=== PATIENT | male | born 1980 | race Caucasian/White ===

== ENCOUNTER 2018-11-03 13:21 | Emergency (ER) | payer OTHER, MEDICAID, SELFPAY ==
[2018-11-03 13:36] VITALS: BP 163/94; PULSE 77; RESP 20; TEMP 36.4; O2SAT 100; BMI 42.3
--- NOTE | 2018-11-03 13:42 | ED.NAVMDI ---
HPI - Nausea/Vomiting/Diarrhea <JULIENNE Alfredo - Last Filed: 11/03/18 15:52> General Chief complaint: Abdominal Pain Stated complaint: Vomiting since last night every hr Time Seen by Provider: 11/03/18 13:37 Source: patient Mode of arrival: ambulatory Limitations: no limitations History of Present Illness HPI Narrative: says it came on suddenly with vomiting and diarrhea, last night, can't keep anything down and it is coming from both ends MD complaint: nausea, vomiting and diarrhea Onset (ago): day(s) (last night) Description of Vomiting: continuous Description of Diarrhea: watery Associated Abdominal Pain: Yes Location of pain: diffuse Radiation: does not radiate Severity: severe Quality: cramping and other (burning) Pain Consistency: constant Exacerbating factors: none Context: other (no travel, no exposure to bad food or sick people) Associated symptoms: denies other symptoms Related Data Home Medications Medication Instructions Recorded Confirmed amitriptyline 150 mg PO BEDTIME 11/03/18 11/03/18 brexpiprazole [Rexulti] 4 mg PO DAILY 11/03/18 11/03/18 gabapentin 800 mg PO BID 11/03/18 11/03/18 pantoprazole 40 mg PO BID 11/03/18 11/03/18 prazosin 5 mg PO BEDTIME 11/03/18 11/03/18 sucralfate [Carafate] 1 g PO QID 11/03/18 11/03/18 venlafaxine 150 mg PO DAILY 11/03/18 11/03/18 Previous Rx's Medication Instructions Recorded ondansetron 4 mg PO Q8-12H PRN #14 tab 11/03/18 promethazine [Phenergan] 25 mg MT Q6H PRN #12 each 11/03/18 Allergies Allergy/AdvReac Type Severity Reaction Status Date / Time Iodinated Contrast- Oral and Allergy Verified 11/03/18 13:40 IV Dye Penicillins Allergy Verified 11/03/18 13:40 shellfish derived Allergy Verified 11/03/18 13:40 Sulfa (Sulfonamide Allergy Verified 11/03/18 13:40 Antibiotics) Review of Systems <JULIENNE Alfredo - Last Filed: 11/03/18 15:52> Review of Systems ROS Unobtainable: All systems reviewed & are unremarkable except as noted in HPI and below Constitutional Reports as per HPI, Reports system reviewed and no additional complaints, except as docu and Denies weakness ENT Ears, Nose, Mouth, and Throat: Denies vertigo and Denies dizziness Cardiovascular Denies chest pain and Denies dyspnea Respiratory Denies dyspnea Gastrointestinal Gastrointestinal: Reports as per HPI, Reports abdominal pain, Denies melena, Denies hematochezia, Denies coffee ground emesis, Denies constipation, Reports cramping, Reports diarrhea, Reports nausea and Reports vomiting (tntc) Comments: several watery dark stools Genitourinary Denies oliguria, Denies dysuria and Denies flank pain Musculoskeletal Denies back pain Neurologic Denies vertigo, Denies dizziness, Denies focal weakness and Denies weakness PFSH <JULIENNE Alfredo - Last Filed: 11/03/18 15:52> Social History Smoking Status: Former smoker Social History Smoking Status: Former smoker Exam <JULIENNE Alfredo - Last Filed: 11/03/18 15:52> Initial Vital Signs Initial Vital Signs: Vital Signs Temperature 97.6 F 11/03/18 13:36 Pulse Rate 77 11/03/18 13:36 Respiratory Rate 20 11/03/18 13:36 Blood Pressure 163/94 H 11/03/18 13:36 Pulse Oximetry 100 11/03/18 13:36 Const General: cooperative, healthy appearing, comfortable and well developed Nutritional Appearance: obese Orientation: alert, awake and oriented x3 Other: pt was vomiting when I entered the room Resp Effort & Inspection: normal respiratory effort and able to speak in complete sentences Auscultation: clear to auscultation bilaterally Cardio Rate: regular rate Rhythm: regular rhythm Heart Sounds: S1 normal and S2 normal GI Inspection: normal to inspection and obesity Palpation: soft Auscultation: normal bowel sounds Back/Spine/Pelvis Cervical Spine: cervical ROM normal Thoracic/Lumbar Spine: thoraco-lumbar ROM limited Skin General: no rashes or lesions noted, elasticity normal, turgor normal and warm Neuro General: alert, awake and oriented x3 Cranial Nerves: CN's II-XI intact bilaterally Cognition: normal cognition Speech: speech normal Motor: muscle tone normal throughout Sensory Exam: no sensory deficits noted Psych Appearance: grossly normal and well kempt Mental Status: mental status grossly normal Speech and Movement: speech and movement normal Mood: congruent mood Affect: normal affect Attitude: cooperative Thought Process: normal Thought Content: normal Judgment: judgment good <Lalita Meeks DO - Last Filed: 11/03/18 19:21> Initial Vital Signs Initial Vital Signs: Vital Signs Temperature 97.6 F 11/03/18 13:36 Pulse Rate 77 11/03/18 13:36 Respiratory Rate 20 11/03/18 13:36 Blood Pressure 163/94 H 11/03/18 13:36 Pulse Oximetry 100 11/03/18 13:36 Course <JULIENNE Alfredo - Last Filed: 11/03/18 15:52> Course Narrative: pt still vomiting, another order given for 2nd dose of zofran pt no longer vomiting but nausea, so gi cocktain given pt given dose of reglan, no vomiting 1540 back at bedside, approx 800ml of the fluid bolus in, no more vomiting and pt stated he felt better Orders Ordered: ED Orders 11/03/18 13:40 Amylase Stat Comprehensive Metabolic Panel Stat Lipase Stat 11/03/18 14:35 Complete Blood Count AUTO DIFF Stat 11/03/18 15:35 Urinalysis Sreen (Dip Only) Stat Discontinued Medications Al Hydrox/Mg Hydrox/Simethicone 20 ml/ Lidocaine HCl 15 ml 0 ml PO NOW ONE Stop: 11/03/18 14:48 Last Admin: 11/03/18 14:51 Dose: 35 ml Sodium Chloride (Normal Saline 0.9%) 1,000 mls @ 1,000 mls/hr IV BOLUS ONE Stop: 11/03/18 14:39 Last Infusion: 11/03/18 15:54 Dose: 0 mls/hr Admin: 11/03/18 14:27 Dose: 1,000 mls/hr Ketorolac Tromethamine (Toradol) 30 mg IV NOW ONE Stop: 11/03/18 13:41 Last Admin: 11/03/18 14:27 Dose: 30 mg Metoclopramide HCl (Reglan) 10 mg IV NOW ONE Stop: 11/03/18 15:15 Last Admin: 11/03/18 15:18 Dose: 10 mg Ondansetron HCl (Zofran) 4 mg IV NOW ONE Stop: 11/03/18 13:41 Last Admin: 11/03/18 14:27 Dose: 4 mg Ondansetron HCl (Zofran) 4 mg IV NOW ONE Stop: 11/03/18 14:53 Last Admin: 11/03/18 14:53 Dose: 4 mg Vital Signs - 8 hr 11/03/18 13:36 11/03/18 16:02 Temperature 97.6 F Pulse Rate 77 82 Respiratory Rate 20 18 Blood Pressure 163/94 H 149/90 H Pulse Oximetry 100 100 <Lalita Meeks DO - Last Filed: 11/03/18 19:21> Orders Ordered: ED Orders 11/03/18 13:40 Amylase Stat Comprehensive Metabolic Panel Stat Lipase Stat 11/03/18 14:35 Complete Blood Count AUTO DIFF Stat 11/03/18 15:35 Urinalysis Sreen (Dip Only) Stat Discontinued Medications Al Hydrox/Mg Hydrox/Simethicone 20 ml/ Lidocaine HCl 15 ml 0 ml PO NOW ONE Stop: 11/03/18 14:48 Last Admin: 11/03/18 14:51 Dose: 35 ml Sodium Chloride (Normal Saline 0.9%) 1,000 mls @ 1,000 mls/hr IV BOLUS ONE Stop: 11/03/18 14:39 Last Infusion: 11/03/18 15:54 Dose: 0 mls/hr Admin: 11/03/18 14:27 Dose: 1,000 mls/hr Ketorolac Tromethamine (Toradol) 30 mg IV NOW ONE Stop: 11/03/18 13:41 Last Admin: 11/03/18 14:27 Dose: 30 mg Metoclopramide HCl (Reglan) 10 mg IV NOW ONE Stop: 11/03/18 15:15 Last Admin: 11/03/18 15:18 Dose: 10 mg Ondansetron HCl (Zofran) 4 mg IV NOW ONE Stop: 11/03/18 13:41 Last Admin: 11/03/18 14:27 Dose: 4 mg Ondansetron HCl (Zofran) 4 mg IV NOW ONE Stop: 11/03/18 14:53 Last Admin: 11/03/18 14:53 Dose: 4 mg Vital Signs - 8 hr 11/03/18 13:36 11/03/18 16:02 Temperature 97.6 F Pulse Rate 77 82 Respiratory Rate 20 18 Blood Pressure 163/94 H 149/90 H Pulse Oximetry 100 100 MDM - Nausea/Vomiting/Diarrhea <JULIENNE lAfredo - Last Filed: 11/03/18 15:52> Differential Diagnosis Likely traveler's diarrhea, food poisoning, gastroenteritis, clostridium difficile infection, drug-induced nausea and vomiting, dehydration and other (electrolyte imbalance, diverticulitis, viral illness) Lab Data Result diagrams: 11/03/18 14:35 11/03/18 13:40 Lab Results 11/03/18 11/03/18 11/03/18 Range/Units 13:40 14:35 15:35 WBC 15.5 H (4.5-11.0) X10^3/uL RBC 5.26 (4.5-5.9) X10^6/uL Hgb 14.5 (13.5-17.5) g/dL Hct 43.5 (41-53) % MCV 82.7 (80-100) fL MCH 27.6 (26-34) PG MCHC 33.4 (30-36) % RDW 14.5 (11.6-14.8) % Plt Count 360 (150-400) X10^3/uL Neut % (Auto) 82.9 H (50-75) % Lymph % (Auto) 11.9 L (25-40) % [place] % (Auto) 4.4 (3-14) % Eos % (Auto) 0.4 L (2-4) % Baso % (Auto) 0.4 (0-2) % Neut # (Auto) 58314 H (8237-6733) /uL Lymph # (Auto) 1800 (6508-1102) /uL [place] # (Auto) 700 (0-900) /uL Eos # (Auto) 100 (0-450) /uL Baso # (Auto) 100 (0-100) /uL Sodium 140 (137-145) mmol/L Potassium 4.2 (3.4-5.1) mmol/L Chloride 103 (98-107) mmol/L Carbon Dioxide 25 (22-32) mmol/L BUN 21 H (9-20) mg/dL Creatinine 1.10 (0.66-1.25) mg/dL Estimated GFR > 60.0 (>60) mL/min BUN/Creatinine Ratio 19.1 (6-22) Glucose 120 H (70-100) mg/dL Calcium 9.7 (8.4-10.2) mg/dL Total Bilirubin 0.7 (0.2-1.3) mg/dL AST 29 (17-59) IU/L ALT 26 (21-72) IU/L Alkaline Phosphatase 68 (38-126) U/L Total Protein 8.5 H (6.3-8.2) g/dL Albumin 4.8 (3.5-5.0) g/dL Globulin 3.7 (1.7-4.1) g/dL Albumin/Globulin Ratio 1.3 (1.0-2.8) Amylase 44 (30-110) U/L Lipase 56 (23-300) U/L Urine Color Yellow Urine Appearance Clear Urine pH 8.5 H (4.5-8.0) Ur Specific [place] 1.010 (1.000-1.035) Urine Protein 2+ H (Negative) Urine Glucose (UA) Negative (Negative) g/dL Urine Ketones 1+ H (NEGATIVE) Urine Occult Blood Negative (Negative) Urine Nitrate Negative (Negative) Urine Bilirubin Negative (NEGATIVE) Urine Urobilinogen 0.2 (0.2) E.U./dL Ur Leukocyte Esterase Negative (NEGATIVE) <Lalita Meeks, DO - Last Filed: 11/03/18 19:21> Lab Data Lab Results 11/03/18 11/03/18 11/03/18 Range/Units 13:40 14:35 15:35 WBC 15.5 H (4.5-11.0) X10^3/uL RBC 5.26 (4.5-5.9) X10^6/uL Hgb 14.5 (13.5-17.5) g/dL Hct 43.5 (41-53) % MCV 82.7 (80-100) fL MCH 27.6 (26-34) PG MCHC 33.4 (30-36) % RDW 14.5 (11.6-14.8) % Plt Count 360 (150-400) X10^3/uL Neut % (Auto) 82.9 H (50-75) % Lymph % (Auto) 11.9 L (25-40) % [place] % (Auto) 4.4 (3-14) % Eos % (Auto) 0.4 L (2-4) % Baso % (Auto) 0.4 (0-2) % Neut # (Auto) 40676 H (4194-2662) /uL Lymph # (Auto) 1800 (2162-9840) /uL [place] # (Auto) 700 (0-900) /uL Eos # (Auto) 100 (0-450) /uL Baso # (Auto) 100 (0-100) /uL Sodium 140 (137-145) mmol/L Potassium 4.2 (3.4-5.1) mmol/L Chloride 103 (98-107) mmol/L Carbon Dioxide 25 (22-32) mmol/L BUN 21 H (9-20) mg/dL Creatinine 1.10 (0.66-1.25) mg/dL Estimated GFR > 60.0 (>60) mL/min BUN/Creatinine Ratio 19.1 (6-22) Glucose 120 H (70-100) mg/dL Calcium 9.7 (8.4-10.2) mg/dL Total Bilirubin 0.7 (0.2-1.3) mg/dL AST 29 (17-59) IU/L ALT 26 (21-72) IU/L Alkaline Phosphatase 68 (38-126) U/L Total Protein 8.5 H (6.3-8.2) g/dL Albumin 4.8 (3.5-5.0) g/dL Globulin 3.7 (1.7-4.1) g/dL Albumin/Globulin Ratio 1.3 (1.0-2.8) Amylase 44 (30-110) U/L Lipase 56 (23-300) U/L Urine Color Yellow Urine Appearance Clear Urine pH 8.5 H (4.5-8.0) Ur Specific [place] 1.010 (1.000-1.035) Urine Protein 2+ H (Negative) Urine Glucose (UA) Negative (Negative) g/dL Urine Ketones 1+ H (NEGATIVE) Urine Occult Blood Negative (Negative) Urine Nitrate Negative (Negative) Urine Bilirubin Negative (NEGATIVE) Urine Urobilinogen 0.2 (0.2) E.U./dL Ur Leukocyte Esterase Negative (NEGATIVE) Discharge Plan Departure Patient Disposition: Home Clinical Impression: Gastroenteritis, Abdominal pain Discharge Date/Time: 11/03/18 16:03 Interventions: ED Discharge Assessment Last Done: 11/03/18 16:02 Instructions: DI for Viral Gastroenteritis -- Adult, DI for Abdominal Pain-Adult Activity Restrictions/Additional Instructions: Clear liquids next 12-24 hrs, then advance diet as tolerated from liquid to BRAT diet (bland food, bananas, rice, toast, dry cereal), then continue to advance diet Prescriptions: New ondansetron 4 mg tablet,disintegrating 4 mg PO Q8-12H PRN (Reason: nausea and vomiting) Qty: 14 RF: 0 promethazine [Phenergan] 25 mg suppository 25 mg MT Q6H PRN (Reason: nausea and vomiting) Qty: 12 RF: 0 No Action amitriptyline 50 mg Tablet 150 mg PO BEDTIME RF: 0 prazosin 5 mg Capsule 5 mg PO BEDTIME RF: 0 gabapentin 800 mg Tablet 800 mg PO BID RF: 0 venlafaxine 150 mg Tablet Extended Release 24hr 150 mg PO DAILY RF: 0 Rexulti 4 mg Tablet 4 mg PO DAILY RF: 0 sucralfate [Carafate] 1 gram Tablet 1 g PO QID RF: 0 pantoprazole 40 mg Tablet,Delayed Release (Dr/Ec) 40 mg PO BID RF: 0 Referrals: Allison Esparza PA-C [[facility]] - Shai Stallings PA-C [[facility]] - Edna Bowser ARNP [[facility]] - Paul Blunt MD [Non-Staff] - Ramesh Mercado PA-C [[facility]] - (follow up recommended in 2 days ) <Lalita Meeks DO - Last Filed: 11/03/18 19:21> [facility] I was immediately available in the department for consultation. This documentation has been reviewed and I agree with assessment and plan. Supervised by Lalita Meeks DO
--- NOTE | 2018-11-03 13:46 | ED_ITS ---
HPI - Nausea/Vomiting/Diarrhea <JULIENNE Alfredo - Last Filed: 11/03/18 15:52> General Chief complaint: Abdominal Pain Stated complaint: Vomiting since last night every hr Time Seen by Provider: 11/03/18 13:37 Source: patient Mode of arrival: ambulatory Limitations: no limitations History of Present Illness HPI Narrative: says it came on suddenly with vomiting and diarrhea, last night, can't keep anything down and it is coming from both ends MD complaint: nausea, vomiting and diarrhea Onset (ago): day(s) (last night) Description of Vomiting: continuous Description of Diarrhea: watery Associated Abdominal Pain: Yes Location of pain: diffuse Radiation: does not radiate Severity: severe Quality: cramping and other (burning) Pain Consistency: constant Exacerbating factors: none Context: other (no travel, no exposure to bad food or sick people) Associated symptoms: denies other symptoms Related Data Home Medications Medication Instructions Recorded Confirmed amitriptyline 150 mg PO BEDTIME 11/03/18 11/03/18 brexpiprazole [Rexulti] 4 mg PO DAILY 11/03/18 11/03/18 gabapentin 800 mg PO BID 11/03/18 11/03/18 pantoprazole 40 mg PO BID 11/03/18 11/03/18 prazosin 5 mg PO BEDTIME 11/03/18 11/03/18 sucralfate [Carafate] 1 g PO QID 11/03/18 11/03/18 venlafaxine 150 mg PO DAILY 11/03/18 11/03/18 Previous Rx's Medication Instructions Recorded ondansetron 4 mg PO Q8-12H PRN #14 tab 11/03/18 promethazine [Phenergan] 25 mg IL Q6H PRN #12 each 11/03/18 Allergies Allergy/AdvReac Type Severity Reaction Status Date / Time Iodinated Contrast- Oral and Allergy Verified 11/03/18 13:40 IV Dye Penicillins Allergy Verified 11/03/18 13:40 shellfish derived Allergy Verified 11/03/18 13:40 Sulfa (Sulfonamide Allergy Verified 11/03/18 13:40 Antibiotics) Review of Systems <JULIENNE Alfredo - Last Filed: 11/03/18 15:52> Review of Systems ROS Unobtainable: All systems reviewed & are unremarkable except as noted in HPI and below Constitutional Reports as per HPI, Reports system reviewed and no additional complaints, except as docu and Denies weakness ENT Ears, Nose, Mouth, and Throat: Denies vertigo and Denies dizziness Cardiovascular Denies chest pain and Denies dyspnea Respiratory Denies dyspnea Gastrointestinal Gastrointestinal: Reports as per HPI, Reports abdominal pain, Denies melena, Denies hematochezia, Denies coffee ground emesis, Denies constipation, Reports cramping, Reports diarrhea, Reports nausea and Reports vomiting (tntc) Comments: several watery dark stools Genitourinary Denies oliguria, Denies dysuria and Denies flank pain Musculoskeletal Denies back pain Neurologic Denies vertigo, Denies dizziness, Denies focal weakness and Denies weakness PFSH <JULIENNE Alfredo - Last Filed: 11/03/18 15:52> Social History Smoking Status: Former smoker Social History Smoking Status: Former smoker Exam <JULIENNE Alfredo - Last Filed: 11/03/18 15:52> Initial Vital Signs Initial Vital Signs: Vital Signs Temperature 97.6 F 11/03/18 13:36 Pulse Rate 77 11/03/18 13:36 Respiratory Rate 20 11/03/18 13:36 Blood Pressure 163/94 H 11/03/18 13:36 Pulse Oximetry 100 11/03/18 13:36 Const General: cooperative, healthy appearing, comfortable and well developed Nutritional Appearance: obese Orientation: alert, awake and oriented x3 Other: pt was vomiting when I entered the room Resp Effort & Inspection: normal respiratory effort and able to speak in complete sentences Auscultation: clear to auscultation bilaterally Cardio Rate: regular rate Rhythm: regular rhythm Heart Sounds: S1 normal and S2 normal GI Inspection: normal to inspection and obesity Palpation: soft Auscultation: normal bowel sounds Back/Spine/Pelvis Cervical Spine: cervical ROM normal Thoracic/Lumbar Spine: thoraco-lumbar ROM limited Skin General: no rashes or lesions noted, elasticity normal, turgor normal and warm Neuro General: alert, awake and oriented x3 Cranial Nerves: CN's II-XI intact bilaterally Cognition: normal cognition Speech: speech normal Motor: muscle tone normal throughout Sensory Exam: no sensory deficits noted Psych Appearance: grossly normal and well kempt Mental Status: mental status grossly normal Speech and Movement: speech and movement normal Mood: congruent mood Affect: normal affect Attitude: cooperative Thought Process: normal Thought Content: normal Judgment: judgment good <Lalita Meeks DO - Last Filed: 11/03/18 19:21> Initial Vital Signs Initial Vital Signs: Vital Signs Temperature 97.6 F 11/03/18 13:36 Pulse Rate 77 11/03/18 13:36 Respiratory Rate 20 11/03/18 13:36 Blood Pressure 163/94 H 11/03/18 13:36 Pulse Oximetry 100 11/03/18 13:36 Course <JULIENNE Alfredo - Last Filed: 11/03/18 15:52> Course Narrative: pt still vomiting, another order given for 2nd dose of zofran pt no longer vomiting but nausea, so gi cocktain given pt given dose of reglan, no vomiting 1540 back at bedside, approx 800ml of the fluid bolus in, no more vomiting and p t stated he felt better Orders Ordered: ED Orders 11/03/18 13:40 Amylase Stat Comprehensive Metabolic Panel Stat Lipase Stat 11/03/18 14:35 Complete Blood Count AUTO DIFF Stat 11/03/18 15:35 Urinalysis Sreen (Dip Only) Stat Discontinued Medications Al Hydrox/Mg Hydrox/Simethicone 20 ml/ Lidocaine HCl 15 ml 0 ml PO NOW ONE Stop: 11/03/18 14:48 Last Admin: 11/03/18 14:51 Dose: 35 ml Sodium Chloride (Normal Saline 0.9%) 1,000 mls @ 1,000 mls/hr IV BOLUS ONE Stop: 11/03/18 14:39 Last Infusion: 11/03/18 15:54 Dose: 0 mls/hr Admin: 11/03/18 14:27 Dose: 1,000 mls/hr Ketorolac Tromethamine (Toradol) 30 mg IV NOW ONE Stop: 11/03/18 13:41 Last Admin: 11/03/18 14:27 Dose: 30 mg Metoclopramide HCl (Reglan) 10 mg IV NOW ONE Stop: 11/03/18 15:15 Last Admin: 11/03/18 15:18 Dose: 10 mg Ondansetron HCl (Zofran) 4 mg IV NOW ONE Stop: 11/03/18 13:41 Last Admin: 11/03/18 14:27 Dose: 4 mg Ondansetron HCl (Zofran) 4 mg IV NOW ONE Stop: 11/03/18 14:53 Last Admin: 11/03/18 14:53 Dose: 4 mg Vital Signs - 8 hr 11/03/18 13:36 11/03/18 16:02 Temperature 97.6 F Pulse Rate 77 82 Respiratory Rate 20 18 Blood Pressure 163/94 H 149/90 H Pulse Oximetry 100 100 <Lalita Meeks DO - Last Filed: 11/03/18 19:21> Orders Ordered: ED Orders 11/03/18 13:40 Amylase Stat Comprehensive Metabolic Panel Stat Lipase Stat 11/03/18 14:35 Complete Blood Count AUTO DIFF Stat 11/03/18 15:35 Urinalysis Sreen (Dip Only) Stat Discontinued Medications Al Hydrox/Mg Hydrox/Simethicone 20 ml/ Lidocaine HCl 15 ml 0 ml PO NOW ONE Stop: 11/03/18 14:48 Last Admin: 11/03/18 14:51 Dose: 35 ml Sodium Chloride (Normal Saline 0.9%) 1,000 mls @ 1,000 mls/hr IV BOLUS ONE Stop: 11/03/18 14:39 Last Infusion: 11/03/18 15:54 Dose: 0 mls/hr Admin: 11/03/18 14:27 Dose: 1,000 mls/hr Ketorolac Tromethamine (Toradol) 30 mg IV NOW ONE Stop: 11/03/18 13:41 Last Admin: 11/03/18 14:27 Dose: 30 mg Metoclopramide HCl (Reglan) 10 mg IV NOW ONE Stop: 11/03/18 15:15 Last Admin: 11/03/18 15:18 Dose: 10 mg Ondansetron HCl (Zofran) 4 mg IV NOW ONE Stop: 11/03/18 13:41 Last Admin: 11/03/18 14:27 Dose: 4 mg Ondansetron HCl (Zofran) 4 mg IV NOW ONE Stop: 11/03/18 14:53 Last Admin: 11/03/18 14:53 Dose: 4 mg Vital Signs - 8 hr 11/03/18 13:36 11/03/18 16:02 Temperature 97.6 F Pulse Rate 77 82 Respiratory Rate 20 18 Blood Pressure 163/94 H 149/90 H Pulse Oximetry 100 100 MDM - Nausea/Vomiting/Diarrhea <JULIENNE Alfredo - Last Filed: 11/03/18 15:52> Differential Diagnosis Likely traveler's diarrhea, food poisoning, gastroenteritis, clostridium difficile infection, drug-induced nausea and vomiting, dehydration and other (electrolyte imbalance, diverticulitis, viral illness) Lab Data Result diagrams: 11/03/18 14:35 11/03/18 13:40 Lab Results 11/03/18 11/03/18 11/03/18 Range/Units 13:40 14:35 15:35 WBC 15.5 H (4.5-11.0) X10^3/uL RBC 5.26 (4.5-5.9) X10^6/uL Hgb 14.5 (13.5-17.5) g/dL Hct 43.5 (41-53) % MCV 82.7 (80-100) fL MCH 27.6 (26-34) PG MCHC 33.4 (30-36) % RDW 14.5 (11.6-14.8) % Plt Count 360 (150-400) X10^3/uL Neut % (Auto) 82.9 H (50-75) % Lymph % (Auto) 11.9 L (25-40) % [place] % (Auto) 4.4 (3-14) % Eos % (Auto) 0.4 L (2-4) % Baso % (Auto) 0.4 (0-2) % Neut # (Auto) 78403 H (4364-3274) /uL Lymph # (Auto) 1800 (0046-2198) /uL [place] # (Auto) 700 (0-900) /uL Eos # (Auto) 100 (0-450) /uL Baso # (Auto) 100 (0-100) /uL Sodium 140 (137-145) mmol/L Potassium 4.2 (3.4-5.1) mmol/L Chloride 103 (98-107) mmol/L Carbon Dioxide 25 (22-32) mmol/L BUN 21 H (9-20) mg/dL Creatinine 1.10 (0.66-1.25) mg/dL Estimated GFR > 60.0 (>60) mL/min BUN/Creatinine Ratio 19.1 (6-22) Glucose 120 H (70-100) mg/dL Calcium 9.7 (8.4-10.2) mg/dL Total Bilirubin 0.7 (0.2-1.3) mg/dL AST 29 (17-59) IU/L ALT 26 (21-72) IU/L Alkaline Phosphatase 68 (38-126) U/L Total Protein 8.5 H (6.3-8.2) g/dL Albumin 4.8 (3.5-5.0) g/dL Globulin 3.7 (1.7-4.1) g/dL Albumin/Globulin Ratio 1.3 (1.0-2.8) Amylase 44 (30-110) U/L Lipase 56 (23-300) U/L Urine Color Yellow Urine Appearance Clear Urine pH 8.5 H (4.5-8.0) Ur Specific [place] 1.010 (1.000-1.035) Urine Protein 2+ H (Negative) Urine Glucose (UA) Negative (Negative) g/dL Urine Ketones 1+ H (NEGATIVE) Urine Occult Blood Negative (Negative) Urine Nitrate Negative (Negative) Urine Bilirubin Negative (NEGATIVE) Urine Urobilinogen 0.2 (0.2) E.U./dL Ur Leukocyte Esterase Negative (NEGATIVE) <Lalita Meeks, DO - Last Filed: 11/03/18 19:21> Lab Data Lab Results 11/03/18 11/03/18 11/03/18 Range/Units 13:40 14:35 15:35 WBC 15.5 H (4.5-11.0) X10^3/uL RBC 5.26 (4.5-5.9) X10^6/uL Hgb 14.5 (13.5-17.5) g/dL Hct 43.5 (41-53) % MCV 82.7 (80-100) fL MCH 27.6 (26-34) PG MCHC 33.4 (30-36) % RDW 14.5 (11.6-14.8) % Plt Count 360 (150-400) X10^3/uL Neut % (Auto) 82.9 H (50-75) % Lymph % (Auto) 11.9 L (25-40) % [place] % (Auto) 4.4 (3-14) % Eos % (Auto) 0.4 L (2-4) % Baso % (Auto) 0.4 (0-2) % Neut # (Auto) 80049 H (1685-8221) /uL Lymph # (Auto) 1800 (1371-0163) /uL [place] # (Auto) 700 (0-900) /uL Eos # (Auto) 100 (0-450) /uL Baso # (Auto) 100 (0-100) /uL Sodium 140 (137-145) mmol/L Potassium 4.2 (3.4-5.1) mmol/L Chloride 103 (98-107) mmol/L Carbon Dioxide 25 (22-32) mmol/L BUN 21 H (9-20) mg/dL Creatinine 1.10 (0.66-1.25) mg/dL Estimated GFR > 60.0 (>60) mL/min BUN/Creatinine Ratio 19.1 (6-22) Glucose 120 H (70-100) mg/dL Calcium 9.7 (8.4-10.2) mg/dL Total Bilirubin 0.7 (0.2-1.3) mg/dL AST 29 (17-59) IU/L ALT 26 (21-72) IU/L Alkaline Phosphatase 68 (38-126) U/L Total Protein 8.5 H (6.3-8.2) g/dL Albumin 4.8 (3.5-5.0) g/dL Globulin 3.7 (1.7-4.1) g/dL Albumin/Globulin Ratio 1.3 (1.0-2.8) Amylase 44 (30-110) U/L Lipase 56 (23-300) U/L Urine Color Yellow Urine Appearance Clear Urine pH 8.5 H (4.5-8.0) Ur Specific [place] 1.010 (1.000-1.035) Urine Protein 2+ H (Negative) Urine Glucose (UA) Negative (Negative) g/dL Urine Ketones 1+ H (NEGATIVE) Urine Occult Blood Negative (Negative) Urine Nitrate Negative (Negative) Urine Bilirubin Negative (NEGATIVE) Urine Urobilinogen 0.2 (0.2) E.U./dL Ur Leukocyte Esterase Negative (NEGATIVE) Discharge Plan Departure Patient Disposition: Home Clinical Impression: Gastroenteritis, Abdominal pain Discharge Date/Time: 11/03/18 16:03 Interventions: ED Discharge Assessment Last Done: 11/03/18 16:02 Instructions: DI for Viral Gastroenteritis -- Adult, DI for Abdominal Pain- Adult Activity Restrictions/Additional Instructions: Clear liquids next 12-24 hrs, then advance diet as tolerated from liquid to BRAT diet (bland food, bananas, rice, toast, dry cereal), then continue to advance diet Prescriptions: New ondansetron 4 mg tablet,disintegrating 4 mg PO Q8-12H PRN (Reason: nausea and vomiting) Qty: 14 RF: 0 promethazine [Phenergan] 25 mg suppository 25 mg IL Q6H PRN (Reason: nausea and vomiting) Qty: 12 RF: 0 No Action amitriptyline 50 mg Tablet 150 mg PO BEDTIME RF: 0 prazosin 5 mg Capsule 5 mg PO BEDTIME RF: 0 gabapentin 800 mg Tablet 800 mg PO BID RF: 0 venlafaxine 150 mg Tablet Extended Release 24hr 150 mg PO DAILY RF: 0 Rexulti 4 mg Tablet 4 mg PO DAILY RF: 0 sucralfate [Carafate] 1 gram Tablet 1 g PO QID RF: 0 pantoprazole 40 mg Tablet,Delayed Release (Dr/Ec) 40 mg PO BID RF: 0 Referrals: Allison Esparza PA-C [[facility]] - Shai Stallings PA-C [[facility]] - Edna Bowser ARNP [[facility]] - Paul Blunt MD [Non-Staff] - Ramesh Mercado PA-C [[facility]] - (follow up recommended in 2 days ) <Lalita Meeks DO - Last Filed: 11/03/18 19:21> Cosign ED Attending Cosmarthaature Attestation: I was immediately available in the department for consultation. This documentation has been reviewed and I agree with assessment and plan. Supervised by Lalita Meeks DO
[2018-11-03] MEDS: ONDANSETRON 4 MG/2 ML INJ IV ×2 (14:27→14:53)
[2018-11-03] MEDS: SODIUM CHLORIDE 0.9% 1,000 ML 1000 ML IV (14:27)
[2018-11-03] MEDS: KETOROLAC 60 MG/2 ML VIAL 30 MG IV (14:27)
[2018-11-03 14:40] LABS: Add Manual Diff / Slide Review NO; Basophils Absolute Auto 100 /uL (0-100); Basophils Percent Auto 0.4 % (0-2); Eosinophils Absolute Auto 100 /uL (0-450); Eosinophils Percent Auto 0.4 % (2-4); Hematocrit 43.5 % (41-53); Hemoglobin 14.5 g/dL (13.5-17.5); Lymphocytes Absolute Auto 1800 /uL (1100-4500); Lymphocytes Percent Auto 11.9 % (25-40); Mean Corpuscular HGB Conc 33.4 % (30-36); Mean Corpuscular Hemoglobin 27.6 PG (26-34); Mean Corpuscular Volume 82.7 fL (80-100); Monocytes Absolute Auto 700 /uL (0-900); Monocytes Percent Auto 4.4 % (3-14); Neutrophils Absolute Auto 12800 /uL (1500-7000); Neutrophils Percent Auto 82.9 % (50-75); Platelet Count 360 X10^3/uL (150-400); Red Blood Cell Count 5.26 X10^6/uL (4.5-5.9); Red Cell Distribution Width 14.5 % (11.6-14.8); White Blood Cell Count 15.5 X10^3/uL (4.5-11.0)
[2018-11-03 14:43] LABS: Alanine Aminotransferase 26 IU/L (21-72); Albumin 4.8 g/dL (3.5-5.0); Albumin Globulin Ratio 1.3 (1.0-2.8); Alkaline Phosphatase 68 U/L (38-126); Amylase 44 U/L (30-110); Aspartate Aminotransferase 29 IU/L (17-59); BUN Creatinine Ratio 19.1 (6-22); Bilirubin Total 0.7 mg/dL (0.2-1.3); Blood Urea Nitrogen 21 mg/dL (9-20); Calcium 9.7 mg/dL (8.4-10.2); Carbon Dioxide 25 mmol/L (22-32); Chloride 103 mmol/L (98-107); Estimated Glomerular Filt Rate > 60.0 mL/min (>60); Globulin 3.7 g/dL (1.7-4.1); Glucose 120 mg/dL (70-100); HEMOLYSIS 40 (0-50); Lipase 56 U/L (23-300); Potassium 4.2 mmol/L (3.4-5.1); Sodium 140 mmol/L (137-145); Total Protein 8.5 g/dL (6.3-8.2)
[2018-11-03] MEDS: MAG HYDROX/ALUMINUM/SIMETH SUS 20 ML, LIDOCAINE VISCOUS 2% 15 ML PO (14:51)
[2018-11-03] MEDS: METOCLOPRAMIDE 10 MG/2 ML INJ IV (15:18)
[2018-11-03 15:42] LABS: Appearance Urine UA CLEAR; Bilirubin Urine UA NEGATIVE (NEGATIVE); Color Urine UA YELLOW; Glucose Urine UA NEGATIVE (Negative); Ketones Urine UA 1+ (NEGATIVE); Leukocyte Esterase Urine UA NEGATIVE (NEGATIVE); Nitrite Urine UA NEGATIVE (Negative); Occult Blood Urine UA NEGATIVE (Negative); Protein Urine UA 2+ (Negative); Urobilinogen Urine UA 0.2 E.U./dL (0.2); pH Urine UA 8.5 (4.5-8.0)
[2018-11-03 16:02] VITALS: BP 149/90; PULSE 82; RESP 18; O2SAT 100
== END 2018-11-03 16:03 | disposition home or self-care (01) ==
PROVIDERS: Emergency Provider Nurse Practitioner
DX: K52.9 Noninfective gastroenteritis and colitis, unspecified (principal); R10.9 Unspecified abdominal pain
CPT/HCPCS: 36591; 80053; 81003; 82150; 83690; 85025; 96361; 96374; 96375; 99283; 99284; J1885; J2405; J2765

== ENCOUNTER 2021-01-16 19:55 | Observation (INO) | payer OTHER, MEDICAID, SELFPAY ==
[2021-01-16 20:10] VITALS: BP 140/85; PULSE 75; RESP 18; TEMP 36.7; O2SAT 100; BMI 38.7
[2021-01-16 20:39] LABS: Add Manual Diff / Slide Review NO; Basophils Absolute Auto 100 /uL (0-100); Basophils Percent Auto 0.4 % (0-2); Eosinophils Absolute Auto 400 /uL (0-450); Eosinophils Percent Auto 2.1 % (2-4); Hematocrit 44.5 % (41-53); Hemoglobin 14.6 g/dL (13.5-17.5); Lymphocytes Absolute Auto 1700 /uL (1100-4500); Lymphocytes Percent Auto 9.2 % (25-40); Mean Corpuscular HGB Conc 32.7 % (30-36); Mean Corpuscular Hemoglobin 27.9 PG (26-34); Mean Corpuscular Volume 85.3 fL (80-100); Monocytes Absolute Auto 1000 /uL (0-900); Monocytes Percent Auto 5.6 % (3-14); Neutrophils Absolute Auto 15000 /uL (1500-7000); Neutrophils Percent Auto 82.7 % (50-75); Platelet Count 319 X10^3/uL (150-400); Red Blood Cell Count 5.22 X10^6/uL (4.5-5.9); Red Cell Distribution Width 14.5 % (11.6-14.8); White Blood Cell Count 18.2 X10^3/uL (4.5-11.0)
--- NOTE | 2021-01-16 20:41 | ED_ITS ---
HPI - Abdominal Pain General Chief Complaint: Abdominal Pain Stated Complaint: vomiting non stop Time Seen by Provider: 01/16/21 19:58 Source: patient Mode of arrival: Ambulatory Limitations: no limitations History of Present Illness HPI narrative: 40-year-old male former smoker with history of bipolar disorder presents with his in the chief complaint of feeling under the weather for about the past 8-9 days. He seems to think that his symptoms started during a record setting heat wave and has not felt great ever since. He denies any new medications or exposure to bad foods. He denies recent travel or exposure to other ill persons. He has felt generally under the weather with a poor appetite and had significant nausea and vomiting over this time period he has developed worsening abdominal pain over the past 24 hours that is worse when he eats or moves, his symptoms then improved with rest. He has nonspecific in the description of the location and states it is sharp, stabbing and sometimes achy in nature. He has had a few loose stools and denies constipation. He denies any dysuria, frequency or urgency. Related Data Home Medications Medication Instructions Recorded Confirmed pantoprazole 40 mg tablet,delayed 40 mg PO BEDTIME 11/03/18 01/17/21 release prazosin 5 mg capsule 5 mg PO BEDTIME 11/03/18 01/17/21 sucralfate 1 gram tablet (Carafate) 1 g PO QID 11/03/18 01/17/21 brexpiprazole 4 mg tablet (Rexulti) 4 mg PO QAM 01/17/21 01/17/21 cariprazine 3 mg capsule (Vraylar) 3 mg PO BEDTIME 01/17/21 01/17/21 fesoterodine 8 mg tablet,extended 8 mg PO QAM 01/17/21 01/17/21 release 24 hr (Toviaz) gabapentin 300 mg capsule 300 mg PO BID 01/17/21 01/17/21 loratadine 10 mg tablet (Claritin) 10 mg PO DAILY 01/17/21 01/17/21 venlafaxine 150 mg 150 mg PO QAM 01/17/21 01/17/21 capsule,extended release 24 hr venlafaxine 75 mg capsule,extended 75 mg PO QAM 01/17/21 01/17/21 release 24 hr Previous Rx's Medication Instructions Recorded ondansetron 4 mg disintegrating 4 mg PO Q8-12H PRN #14 tab 11/03/18 tablet Allergies Allergy/AdvReac Type Severity Reaction Status Date / Time Iodinated Contrast Media Allergy Verified 11/03/18 13:40 [Iodinated Contrast- Oral and IV Dye] Penicillins Allergy Verified 11/03/18 13:40 shellfish derived Allergy Verified 11/03/18 13:40 Sulfa (Sulfonamide Allergy Verified 11/03/18 13:40 Antibiotics) Review of Systems Review of Systems Narrative: GENERAL: Denies chills, fatigue, malaise, fever, sweats. HEENT: Denies sinus pain, ear pain, sore throat, difficulty swallowing, dizziness. RESPIRATORY: Denies dyspnea, cough, wheezing, hemoptysis, sputum. CARDIOVASCULAR: Denies chest pain, palpitations, orthopnea, edema, GASTROINTESTINAL: See HPI : Denies dysuria, frequency, incontinence, hematuria, urinary retention. MUSCULOSKELETAL: denies weakness, joint pain, or bony pain SKIN: Denies rash, skin lesions, or other NEUROLOGIC: Denies weakness, headache, numbness, change in speech, confusion, seizures, incoordination. PSYCHIATRIC: No concerning psychosocial issues. 12 point review of systems is negative except for those stated above Patient History Medical History Bipolar 1 disorder, depressed, severe Borderline schizophrenia BPH (benign prostatic hyperplasia) Chronic low back pain Hiatal hernia with gastroesophageal reflux disease and esophagitis History of pulmonary embolism Neuropathy Obesity (BMI 30-39.9) Surgical History History of surgical removal of skin lesion Family History Mother Polycystic kidney disease Kidney transplanted Father Hypertension Social History household members: significant other Smoking Status: Former smoker Smoking Status: Former smoker alcohol intake frequency: 0-2 drinks per day Substance Use Type: marijuana Exam Narrative Exam Narrative: GENERAL: [40] year old patient appears stated age. Well- developed patient, in moderate distress, rubbing his abdomen, clearly uncomfortable and holding an emesis bag HEAD: Atraumatic. Normocephalic. EYES: Pupils equal round and reactive. Extraocular motions intact. No scleral icterus. No injection or drainage. ENT: Nose without bleeding, purulent drainage. Throat without erythema, tonsill ar hypertrophy or exudate. Airway patent. NECK: Trachea midline. Non tender CARDIOVASCULAR: Regular rate and rhythm without murmurs, gallops, or rubs. RESPIRATORY: Clear to auscultation. Breath sounds equal bilaterally. No wheezes, rales, or rhonchi. GASTROINTESTINAL: Abdomen soft, tender in the epigastrium, right upper quadrant and left lower quadrant, nondistended. Bowel sounds present in all 4 quadrants EXTREMITIES: No edema or joint tenderness. BACK: Nontender without deformity or crepitance. No flank tenderness. NEURO: AOx3. SKIN: No rash or erythema of visible areas Initial Vital Signs Initial Vital Signs: Vital Signs Temperature 98.1 F 01/16/21 20:10 Pulse Rate 75 01/16/21 20:10 Respiratory Rate 18 01/16/21 20:10 Blood Pressure 140/85 01/16/21 20:10 Pulse Oximetry 100 01/16/21 20:10 Course Orders Ordered: Acetaminophen (Acetaminophen 325 Mg Tablet) 650 mg PO Q6HR PRN PRN Reason: Fever/Mild Pain (1-3) Capsaicin (Capsaicin 30 Applic/Tube Cream..G.) 1 applic TOP Q6H PRN PRN Reason: Pain, Mild (1-3) Enoxaparin Sodium (Enoxaparin 40 Mg/0.4 Ml Syringe) 40 mg SUBCUT DAILY [facility] Last Admin: 01/17/21 11:00 Dose: 40 mg Documented by: LORI Famotidine (Famotidine 20 Mg/2 Ml Vial) 20 mg IV BID [facility] Last Admin: 01/17/21 10:52 Dose: 20 mg Documented by: LORI Gabapentin (Gabapentin 300 Mg Capsule) 300 mg PO BID [facility] Last Admin: 01/17/21 10:51 Dose: 300 mg Documented by: LORI Lorazepam (Lorazepam 2 Mg/Ml Inj) 1 mg IV Q4HR PRN PRN Reason: Nausea And Vomiting Last Admin: 01/17/21 16:46 Dose: 1 mg Documented by: Admin: 01/17/21 11:22 Dose: 1 mg Documented by: Admin: 01/17/21 03:53 Dose: 1 mg Documented by: SOBEIDA Metoclopramide HCl (Metoclopramide 10 Mg/2 Ml Inj) 10 mg IV Q6HR PRN PRN Reason: Nausea And Vomiting Naloxone HCl (Naloxone 0.4 Mg/Ml Vial) 0.2 mg IV Q2MIN PRN PRN Reason: Opiate Reversal Brexpiprazole [ (Rexulti] 4 Mg Tablet) 4 mg PO DAILY [facility] Last Admin: 01/17/21 11:09 Dose: 4 mg Documented by: LORI Cariprazine [Vraylar (] 3 Mg Capsule) 3 mg PO BEDTIME [facility] Stored In Pharmacy 0 each PO PRN PRN PRN Reason: . Ondansetron HCl (Ondansetron 4 Mg/2 Ml Inj) 4 mg IV Q8HR PRN PRN Reason: Nausea And Vomiting Oxybutynin Chloride (Oxybutynin 5 Mg Er Tab) 10 mg PO DAILY [facility] Last Admin: 01/17/21 11:00 Dose: 10 mg Documented by: LORI Pantoprazole Sodium (Pantoprazole 40 Mg Vial) 40 mg IV DAILY [facility] Last Admin: 01/17/21 10:52 Dose: 40 mg Documented by: LORI Prazosin HCl (Prazosin Hcl 5 Mg Capsule) 5 mg PO BEDTIME [facility] Sucralfate (Sucralfate 1 Gm Tablet) 1 gm PO BID [facility] Last Admin: 01/17/21 15:07 Dose: Not Given Documented by: LORI Venlafaxine HCl (Venlafaxine Er 75 Mg Cap) 225 mg PO DAILY [facility] Last Admin: 01/17/21 10:52 Dose: 225 mg Documented by: LORI Discontinued Medications Al Hydrox/Mg Hydrox/Simethicone 20 ml/ Lidocaine HCl 15 ml 0 ml PO NOW ONE Stop: 01/17/21 04:11 Last Admin: 01/17/21 04:30 Dose: 45 ml Documented by: SOBEIDA Diphenhydramine HCl (Diphenhydramine 50 Mg/Ml Vial) 25 mg IV NOW ONE Stop: 01/16/21 20:42 Last Admin: 01/16/21 21:28 Dose: 25 mg Documented by: LING Enalaprilat (Enalaprilat 2.5 Mg/ 2 Ml Vial) 0.625 mg IV Q6H [facility] Famotidine (Famotidine 20 Mg/2 Ml Vial) 20 mg IV NOW [facility] Last Admin: 01/16/21 22:29 Dose: 20 mg Documented by: LING Sodium Chloride (Normal Saline 0.9%) 1,000 mls @ 1,000 mls/hr IV BOLUS ONE Stop: 01/16/21 21:40 Last Infusion: 01/17/21 00:13 Dose: 0 mls/hr Documented by: Admin: 01/16/21 21:23 Dose: 1,000 mls/hr Documented by: LING Dextrose/Sodium Chloride (Dextrose 5%-0.9% Ns) 1,000 mls @ 100 mls/hr IV CONT [facility] Last Admin: 01/17/21 02:30 Dose: 100 mls/hr Documented by: SOBEIDA Lactated Ringer's (Lactated Ringers) 1,000 mls @ 1,000 mls/hr IV BOLUS ONE Stop: 01/17/21 03:55 Last Infusion: 01/17/21 12:31 Dose: 0 mls/hr Documented by: Admin: 01/17/21 03:23 Dose: 1,000 mls/hr Documented by: SOBEIDA Lactated Ringer's (Lactated Ringers) 1,000 mls @ 250 mls/hr IV CONT [facility] Lactated Ringer's (Lactated Ringers) 1,000 mls @ 250 mls/hr IV CONT [facility] Stop: 01/17/21 05:29 Last Admin: 01/17/21 04:40 Dose: 250 mls/hr Documented by: SOBEIDA Ketorolac Tromethamine (Ketorolac 30 Mg/Ml Vial) 30 mg IV Q6HR PRN PRN Reason: Fever/Mild Pain (1-3) Stop: 01/22/21 02:07 Lorazepam (Lorazepam 2 Mg/Ml Inj) 1 mg IV NOW ONE Stop: 01/16/21 22:22 Last Admin: 01/16/21 22:29 Dose: 1 mg Documented by: LING Methylprednisolone (Methylprednisolone 125 Mg/2 Ml Vial) 125 mg IV NOW ONE Stop: 01/16/21 20:42 Last Admin: 01/16/21 21:32 Dose: 125 mg Documented by: LING Ondansetron HCl (Ondansetron 4 Mg/2 Ml Inj) 4 mg IV Q4HR PRN PRN Reason: Nausea And Vomiting Last Admin: 01/17/21 01:09 Dose: 4 mg Documented by: Admin: 01/16/21 21:36 Dose: 4 mg Documented by: LING Venlafaxine HCl (Venlafaxine Er 75 Mg Cap) 75 mg PO DAILY [facility] Reevaluation(s) Reevaluation #1: Patient continues to have nausea and vomiting after Zofran, diphenhydramine, Ativan Vital Signs Vital signs: Vital Signs - 8 hr 01/16/21 20:10 01/17/21 00:17 Temperature 98.1 F Pulse Rate 75 84 Respiratory Rate 18 18 Blood Pressure 140/85 145/79 H Pulse Oximetry 100 98 MDM - Abdominal Pain Lab Data Result diagrams: 01/17/21 04:50 01/17/21 04:50 Labs: Lab Results 01/16/21 01/16/21 01/16/21 Range/Units 20:25 20:25 20:25 WBC 18.2 H (4.5-11.0) X10^3/uL RBC 5.22 (4.5-5.9) X10^6/uL Hgb 14.6 (13.5-17.5) g/dL Hct 44.5 (41-53) % MCV 85.3 (80-100) fL MCH 27.9 (26-34) PG MCHC 32.7 (30-36) % RDW 14.5 (11.6-14.8) % Plt Count 319 (150-400) X10^3/uL Neut % (Auto) 82.7 H (50-75) % Lymph % (Auto) 9.2 L (25-40) % [place] % (Auto) 5.6 (3-14) % Eos % (Auto) 2.1 (2-4) % Baso % (Auto) 0.4 (0-2) % Neut # (Auto) 49001 H (9285-3063) /uL Lymph # (Auto) 1700 (0160-3118) /uL [place] # (Auto) 1000 H (0-900) /uL Eos # (Auto) 400 (0-450) /uL Baso # (Auto) 100 (0-100) /uL Sodium 142 (137-145) mmol/L Potassium 4.2 (3.4-5.1) mmol/L Chloride 107 (98-107) mmol/L Carbon Dioxide 26 (22-32) mmol/L BUN 16 (9-20) mg/dL Creatinine 1.17 (0.66-1.25) mg/dL Estimated GFR > 60.0 (>60) mL/min BUN/Creatinine Ratio 13.7 (6-22) Glucose 109 H (70-100) mg/dL Hemoglobin A1c (4.0-6.0) % Lactate (0.7-2.1) mmol/L Calcium 9.4 (8.4-10.2) mg/dL Magnesium 2.1 (1.6-2.3) mg/dL Total Bilirubin 0.5 (0.2-1.3) mg/dL GGT (15-73) U/L AST 24 (17-59) IU/L ALT 17 (<50) IU/L Alkaline Phosphatase 56 (38-126) U/L Total Protein 7.8 (6.3-8.2) g/dL Albumin 4.3 (3.5-5.0) g/dL Globulin 3.5 (1.7-4.1) g/dL Albumin/Globulin Ratio 1.2 (1.0-2.8) Triglycerides Amylase (30-110) U/L Lipase 377 H (23-300) U/L Ur Bilirubin Confirm (Negative) Urine RBC (0-5/HPF) Urine WBC (0-5/HPF) Urine Bacteria (None) Ur Culture Indicated? Ethyl Alcohol ( - 10) mg/dL 01/16/21 01/16/21 01/16/21 Range/Units 20:25 20:25 20:25 WBC (4.5-11.0) X10^3/uL RBC (4.5-5.9) X10^6/uL Hgb (13.5-17.5) g/dL Hct (41-53) % MCV (80-100) fL MCH (26-34) PG MCHC (30-36) % RDW (11.6-14.8) % Plt Count (150-400) X10^3/uL Neut % (Auto) (50-75) % Lymph % (Auto) (25-40) % [place] % (Auto) (3-14) % Eos % (Auto) (2-4) % Baso % (Auto) (0-2) % Neut # (Auto) (7092-5586) /uL Lymph # (Auto) (4305-7962) /uL [place] # (Auto) (0-900) /uL Eos # (Auto) (0-450) /uL Baso # (Auto) (0-100) /uL Sodium (137-145) mmol/L Potassium (3.4-5.1) mmol/L Chloride (98-107) mmol/L Carbon Dioxide (22-32) mmol/L BUN (9-20) mg/dL Creatinine (0.66-1.25) mg/dL Estimated GFR (>60) mL/min BUN/Creatinine Ratio (6-22) Glucose (70-100) mg/dL Hemoglobin A1c (4.0-6.0) % Lactate 1.1 (0.7-2.1) mmol/L Calcium (8.4-10.2) mg/dL Magnesium (1.6-2.3) mg/dL Total Bilirubin (0.2-1.3) mg/dL GGT 27 (15-73) U/L AST (17-59) IU/L ALT (<50) IU/L Alkaline Phosphatase (38-126) U/L Total Protein (6.3-8.2) g/dL Albumin (3.5-5.0) g/dL Globulin (1.7-4.1) g/dL Albumin/Globulin Ratio (1.0-2.8) Triglycerides Cancelled Amylase 115 H (30-110) U/L Lipase (23-300) U/L Ur Bilirubin Confirm (Negative) Urine RBC (0-5/HPF) Urine WBC (0-5/HPF) Urine Bacteria (None) Ur Culture Indicated? Ethyl Alcohol ( - 10) mg/dL 01/16/21 01/16/21 01/16/21 Range/Units 20:25 20:25 21:33 WBC (4.5-11.0) X10^3/uL RBC (4.5-5.9) X10^6/uL Hgb (13.5-17.5) g/dL Hct (41-53) % MCV (80-100) fL MCH (26-34) PG MCHC (30-36) % RDW (11.6-14.8) % Plt Count (150-400) X10^3/uL Neut % (Auto) (50-75) % Lymph % (Auto) (25-40) % [place] % (Auto) (3-14) % Eos % (Auto) (2-4) % Baso % (Auto) (0-2) % Neut # (Auto) (4769-0335) /uL Lymph # (Auto) (7109-7446) /uL [place] # (Auto) (0-900) /uL Eos # (Auto) (0-450) /uL Baso # (Auto) (0-100) /uL Sodium (137-145) mmol/L Potassium (3.4-5.1) mmol/L Chloride (98-107) mmol/L Carbon Dioxide (22-32) mmol/L BUN (9-20) mg/dL Creatinine (0.66-1.25) mg/dL Estimated GFR (>60) mL/min BUN/Creatinine Ratio (6-22) Glucose (70-100) mg/dL Hemoglobin A1c 5.5 (4.0-6.0) % Lactate (0.7-2.1) mmol/L Calcium (8.4-10.2) mg/dL Magnesium (1.6-2.3) mg/dL Total Bilirubin (0.2-1.3) mg/dL GGT (15-73) U/L AST (17-59) IU/L ALT (<50) IU/L Alkaline Phosphatase (38-126) U/L Total Protein (6.3-8.2) g/dL Albumin (3.5-5.0) g/dL Globulin (1.7-4.1) g/dL Albumin/Globulin Ratio (1.0-2.8) Triglycerides Amylase (30-110) U/L Lipase (23-300) U/L Ur Bilirubin Confirm Negative (Negative) Urine RBC 0-1/hpf (0-5/HPF) Urine WBC None seen (0-5/HPF) Urine Bacteria None seen (None) Ur Culture Indicated? Cult not indicated Ethyl Alcohol < 10 ( - 10) mg/dL Point of care testing: Urine Dip Bedside Urine Glucose Negative Bedside Urine Bilirubin + 1 Bedside Urine Ketone +/- 5 Urine Specific Viola 1.025 Bedside Urine Occult Blood - Negative Bedside Urine pH 6.0 Bedside Urine Protein +/- 15 Bedside Urine Urobilinogen - Negative Bedside Urine Nitrite - Negative Bedside Urine Leukocytes - Negative Esterase Imaging Data CT scan - abdomen/pelvis: Radiologist's Impression: Elkin Figueredo 40 M [address] [id number] Scan ReportSigned Patient: Elkin FigueredoMR#: [id number]: 1980Acct:[id number]/Sex: 40 / MDate of Service: 01/16/21Loc: [id number] Number: [id number] Procedure: CT abdomen pelvis w con Ordering Provider: Lionel Oro D.O. PROCEDURE: CT ABDOMEN PELVIS W CON INDICATIONS: abdominal pain, vomiting TECHNIQUE: After the administration of intravenous contrast, axial sections acquired from the lung bases to the pubic symphysis. Coronal and sagittal reformats were performed. For radiation dose reduction, the following was used: automated exposure control, adjustment of mA and/or kV according to patient size. COMPARISON: [facility], CR, XR CHEST 2 VIEWS, 02/10/2012, 0:54. [facility], CT, CT ANGIO CHEST, 02/10/2012, 1:42. FINDINGS: Image quality: Excellent. Lung bases: Unremarkable. Note is again made of a right anterolateral pleural lipoma present also in 2012 by both plain film and CT scanning. Heart: No significant findings. ABDOMEN: Liver: Unremarkable. Gallbladder: Unremarkable. Biliary ducts: Unremarkable. Pancreas: Unremarkable. Spleen: Unremarkable. Adrenal Glands: Unremarkable. Kidneys and Ureters: Unremarkable. Stomach and Bowel: Stomach, small bowel loops, and colon are unremarkable. Peritoneum: No abnormal intraperitoneal fluid. No free air. Ventral Wall: No hernias. Abdominal Nodes: No retroperitoneal or mesenteric adenopathy by size criteria. Vessels: Aorta and inferior vena cava are normal in size. PELVIS: Pelvic Organs: Unremarkable. Bladder: Unremarkable. Pelvic Nodes: No enlarged lymph nodes. Miscellaneous: No hernias are seen. Bones: Unremarkable. IMPRESSION: Source of current symptoms is not seen. 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 This was also present in 2011. No specific follow-up recommended. Dictated by: Adam Aguirre M.D. on 01/17/2021 at 12:48 Approved by: Adam Aguirre M.D. on 01/17/2021 at 12:51 US - abdomen: Radiologist's Impression: [address] [id number] ReportSigned Patient: Elkin FigueredoMR#: [id number]: 1980Acct:[id number]/Sex: 40 / MDate of Service: 01/16/21Loc: EDAccession Number: [id number] Procedure: US abdomen limited Ordering Provider: Lionel Oro D.O. PROCEDURE: US ABDOMEN LIMITED INDICATIONS: PAIN; N/V; JAUNDICE TECHNIQUE: Real-time focused scanning was performed of the right upper quadrant, with image documentation. COMPARISON: None. FINDINGS: The liver demonstrates increased echogenicity consistent with fatty infiltration with limited visualization due to body habitus. No gallstones, gallbladder wall thickening, or pericholecystic fluid. No definite intrahepatic biliary ductal dilatation. The visualized common bile duct is normal in caliber measuring 5-6 mm. The pancreas was not well seen sonographically. IMPRESSION: 1. No evidence of cholelithiasis or cholecystitis. 2. No biliary ductal dilatation. Dictated by: Dinesh Mascorro M.D. on 01/16/2021 at 21:36 Approved by: Dinesh Mascorro M.D. on 01/16/2021 at 21:37 MDM Narrative Medical decision making narrative: Patient with persistent and intractable symptoms despite multiple antiemetics. Labs and imaging do not demonstrate any obvious source. His lipase is slightly elevated but he has no abnormal findings on imaging and this alone is not likely to be the sole cause of his symptoms. He does admit to frequent heavy use of THC which raises the question of the possibility of cannabis hyperemesis syndrome. Nonetheless, he has intractable nausea and vomiting and has failed oral challenge. He will require hospitalization for stabilization ongoing evaluation of his condition Discharge Plan Departure Patient Disposition: Admitted as Observation Clinical Impression: Intractable vomiting, Pancreatitis, Abdominal pain Admit Date/Time: 01/17/21 01:45 Admit Provider: No Walls
[2021-01-16 20:44] LABS: Alanine Aminotransferase 17 IU/L (<50); Albumin 4.3 g/dL (3.5-5.0); Albumin Globulin Ratio 1.2 (1.0-2.8); Alkaline Phosphatase 56 U/L (38-126); Aspartate Aminotransferase 24 IU/L (17-59); BUN Creatinine Ratio 13.7 (6-22); Bilirubin Total 0.5 mg/dL (0.2-1.3); Blood Urea Nitrogen 16 mg/dL (9-20); Calcium 9.4 mg/dL (8.4-10.2); Carbon Dioxide 26 mmol/L (22-32); Chloride 107 mmol/L (98-107); Estimated Glomerular Filt Rate > 60.0 mL/min (>60); Globulin 3.5 g/dL (1.7-4.1); Glucose 109 mg/dL (70-100); HEMOLYSIS 20 (0-50); Lipase 377 U/L (23-300); Potassium 4.2 mmol/L (3.4-5.1); Sodium 142 mmol/L (137-145); Total Protein 7.8 g/dL (6.3-8.2)
[2021-01-16] MEDS: SODIUM CHLORIDE 0.9% 1,000 ML 1000 ML IV (21:23)
[2021-01-16] MEDS: diphenhydrAMINE 50 MG/ML VIAL 25 MG IV (21:28)
[2021-01-16] MEDS: methylPREDNISolone 125 MG/2 ML VIAL IV (21:32)
[2021-01-16] MEDS: ONDANSETRON 4 MG/2 ML INJ IV (21:36)
--- NOTE | 2021-01-16 21:41 | DI.CT.S_ITS ---
PROCEDURE: CT ABDOMEN PELVIS W CON INDICATIONS: abdominal pain, vomiting TECHNIQUE: After the administration of intravenous contrast, axial sections acquired from the lung bases to the pubic symphysis. Coronal and sagittal reformats were performed. For radiation dose reduction, the following was used: automated exposure control, adjustment of mA and/or kV according to patient size. COMPARISON: [facility], CR, XR CHEST 2 VIEWS, 02/10/2012, 0:54. [facility], CT, CT ANGIO CHEST, 02/10/2012, 1:42. FINDINGS: Image quality: Excellent. Lung bases: Unremarkable. Note is again made of a right anterolateral pleural lipoma present also in 2012 by both plain film and CT scanning. Heart: No significant findings. ABDOMEN: Liver: Unremarkable. Gallbladder: Unremarkable. Biliary ducts: Unremarkable. Pancreas: Unremarkable. Spleen: Unremarkable. Adrenal Glands: Unremarkable. Kidneys and Ureters: Unremarkable. Stomach and Bowel: Stomach, small bowel loops, and colon are unremarkable. Peritoneum: No abnormal intraperitoneal fluid. No free air. Ventral Wall: No hernias. Abdominal Nodes: No retroperitoneal or mesenteric adenopathy by size criteria. Vessels: Aorta and inferior vena cava are normal in size. PELVIS: Pelvic Organs: Unremarkable. Bladder: Unremarkable. Pelvic Nodes: No enlarged lymph nodes. Miscellaneous: No hernias are seen. Bones: Unremarkable. IMPRESSION: Source of current symptoms is not seen. 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 This was also present in 2011. No specific follow-up recommended. Dictated by: Adam Aguirre M.D. on 01/17/2021 at 12:48 Approved by: Adam Aguirre M.D. on 01/17/2021 at 12:51
[2021-01-16 22:10] LABS: Bacteria Urine None Seen; WBC Urine None Seen (0-5/HPF)
[2021-01-16] MEDS: FAMOTIDINE 20 MG/2 ML VIAL IV (22:29)
[2021-01-16] MEDS: LORazepam 2 MG/ML INJ 1 MG IV (22:29)
[2021-01-16 22:42] LABS: Culture Indicated Urine Cult Not Indicated; RBC Urine 0-1/HPF (0-5/HPF)
[2021-01-16 22:43] LABS: Ictotest Urine Negative (Negative)
[2021-01-17] VITALS (11 sets, daily range): BP systolic 105–145; BP diastolic 61–90; PULSE 65–106; RESP 14–24; TEMP 36.4–36.7; O2SAT 95–98; BMI 38.7
[2021-01-17] MEDS: ONDANSETRON 4 MG/2 ML INJ IV (01:09)
--- NOTE | 2021-01-17 01:34 | PC.NURSE ---
Pt reports worsening nausea/vomiting after drinking a few sips of water. Dr Oro notified.
--- NOTE | 2021-01-17 02:12 | PM.HP.1 ---
History of Present Illness History of Present Illness Date Patient Seen: 01/17/21 Time Patient Seen: 02:12 Chief complaint: vomiting non stop Narrative: Patient is a 40 year old male Elkin Figueredo who presented to the ED this evening for intractable nausea and vomiting. Patient states that he has been feeling poorly for approximately the last 9 days with nausea, vomiting and decreased appetite, starting yesterday he began to have in addition to nausea and vomiting, diarrhea and worsening abdominal pain unable to keep fluids down. He reports 6 bouts of diarrhea within the past 24 hours. ED provided the patient with Zofran, Benadryl, Ativan and Reglan and patient was unable to tolerate fluid challenge. Patient denies chest pain, shortness of breath, fever, cough, CÁRDENAS. Patient has history of BPH, PE due to medication, chronic back pain with neuropathy, bipolar 1 with borderline schizophrenia (auditory & visual hallucinations), and a esophageal hiatal hernia with esophagitis. 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 Upon admit the patient has just ingested container of apple juice and is able to keep it down, he is having continued nausea abdominal pain 6/10 diffuse across the abdomen, with the greatest tenderness over the epigastric area, body aches and chills, c/o burning up the esophagus, acid in his mouth, frequent burping. Patient reports that he is been advised that he would benefit from a lap band but that his weight has precluded him from surgery. The patient also is having significant anxiety an 8 to 9/10, depression 7/10, he denies suicidal ideation. He has not taken any of his psych meds for 24 hour due to vomiting, but his girlfriend is bringing in his medications momentarily. The patient will be taking his medications from from home as our pharmacy does not stock many of his medications. During admit exam patient was able to keep the apple juice down and I observed him taking his evening medications. Patient quit smoking in 2014 he had been a smoker for approximately 20 years, he no longer drinks alcohol, but he does use marijuana frequently and has since approximately the age of 10. I did discuss with patient the cannabis hyperemesis syndrome and that it may be a contributing factor at this time. The patient's vital signs upon admit temp 98.1?, BP mild elevation 145/79, HR 84, RR 18, 98% on room air. Patient did have an elevated white count at 18.2 with a left shift neutrophils 15,000. The rest of CBC and CMP within normal limits. Patient did have a mildly elevated lipase at 377, have ordered amylase, GGT, procalcitonin for further diagnostic evaluation. Abdominal ultrasound was negative for cholelithiasis or cholecystitis, or biliary duct dilation. Abdominal CT was negative for acute inflammatory findings. Patient History Medical History (Updated 01/17/21 @ 04:07 by DIANE Martinez-) Bipolar 1 disorder, depressed, severe Borderline schizophrenia BPH (benign prostatic hyperplasia) Chronic low back pain Hiatal hernia with gastroesophageal reflux disease and esophagitis History of pulmonary embolism Neuropathy Obesity (BMI 30-39.9) Surgical History (Updated 01/17/21 @ 04:07 by DIANE Martinez-MELANIE) History of surgical removal of skin lesion Family & Social History Family History (Updated 01/17/21 @ 04:08 by DIANE Martinez-MELANIE) Mother Polycystic kidney disease Kidney transplanted Father Hypertension Safety & Behavioral: Feels Safe in Current Yes, patient lives with his girlfriend and is permanently disabled. Environment Tobacco & Substance use: Smoking Status Former smoker-quit in 2014 smoked for 20 years alcohol intake frequency 0-2 drinks per day Substance Use Type marijuana long-term use Meds Home Medications and Allergies Home Medications Medication Instructions Recorded Confirmed Type ondansetron 4 mg disintegrating 4 mg PO Q8-12H PRN #14 tab 11/03/18 01/17/21 Rx tablet pantoprazole 40 mg tablet,delayed 40 mg PO BEDTIME 11/03/18 01/17/21 History release prazosin 5 mg capsule 5 mg PO BEDTIME 11/03/18 01/17/21 History sucralfate 1 gram tablet (Carafate) 1 g PO QID 11/03/18 01/17/21 History brexpiprazole 4 mg tablet (Rexulti) 4 mg PO QAM 01/17/21 01/17/21 History cariprazine 3 mg capsule (Vraylar) 3 mg PO BEDTIME 01/17/21 01/17/21 History fesoterodine 8 mg tablet,extended 8 mg PO QAM 01/17/21 01/17/21 History release 24 hr (Toviaz) gabapentin 300 mg capsule 300 mg PO BID 01/17/21 01/17/21 History loratadine 10 mg tablet (Claritin) 10 mg PO DAILY 01/17/21 01/17/21 History venlafaxine 150 mg 150 mg PO QAM 01/17/21 01/17/21 History capsule,extended release 24 hr venlafaxine 75 mg capsule,extended 75 mg PO QAM 01/17/21 01/17/21 History release 24 hr Allergies Allergy/AdvReac Type Severity Reaction Status Date / Time Iodinated Contrast Media Allergy Verified 11/03/18 13:40 [Iodinated Contrast- Oral and IV Dye] Penicillins Allergy Verified 11/03/18 13:40 shellfish derived Allergy Verified 11/03/18 13:40 Sulfa (Sulfonamide Allergy Verified 11/03/18 13:40 Antibiotics) Review of Systems Review of Systems Narrative: Patient continues to complain abdominal pain, nausea, anxiety, depression, body aches, chills, epigastric pain, and esophageal burning, vomiting has stopped. Exam Vital Signs (past 8 hours): - 01/16/21 20:10 01/17/21 00:17 Temperature 98.1 F Pulse Rate 75 84 Respiratory Rate 18 18 Blood Pressure 140/85 145/79 H Pulse Oximetry 100 98 Oxygen Delivery Method Room Air Narrative Exam Narrative: General: Patient is a very nice obese male well-developed, well-nourished in no distress at this time. HEENT: Normocephalic, atraumatic, extraocular muscles intact, oral pharynx is clear and mucous membranes are dry. Neck is supple and symmetric, trachea is midline, no adenopathy, no thyroid enlargement, nontender, no masses palpated. Negative for JVD Chest: Normal AP diameter and contour without kyphoscoliosis, no nasal flaring, retractions, or tachypneic labored Lungs: Auscultation of all lung holm are clear without adventitious sounds, wheezes, rhonchi, or rales. Cardio: S1 & S2 with regular rate and rhythm without murmur, rubs, or gallops, no carotid bruit, no cardiac pulsations present. Abdomen: Soft Mild diffuse tenderness throughout with increased tenderness in the epigastric area, negative for organomegaly, or masses. Bowel sounds are present in all 4 quadrants without guarding or rebound, no CVA tenderness. Musculoskeletal: Muscle strength and tone are equal within normal limits, no deformity, crepitus, effusions, cyanosis, clubbing or edema present. Full range of motion intact radial and pedal pulses are normal. Skin: Warm dry and intact without rashes, ulcerations or petechiae. Neuro: Alert and orientated x3, strength is +5/5 in all extremities, sensation to touch intact, no gross deficits noted of cranial nerves. Psych: Patient has a well-kept appearance, appropriate affect, patient is very anxious and has inquired about an Ativan dose several times during admit exam. Patient is well informed regarding his medications and is diligent in his compliance, he also regularly attends counseling and psych appointments. Mental status attitude thought context and judgment are appropriate for age. Objective Labs Result Diagrams: 01/16/21 20:25 01/16/21 20:25 Labs: Laboratory Results - last 24 hr 01/16/21 01/16/21 01/16/21 20:25 20:25 21:33 WBC 18.2 H RBC 5.22 Hgb 14.6 Hct 44.5 MCV 85.3 MCH 27.9 MCHC 32.7 RDW 14.5 Plt Count 319 Neut % (Auto) 82.7 H Lymph % (Auto) 9.2 L [place] % (Auto) 5.6 Eos % (Auto) 2.1 Baso % (Auto) 0.4 Neut # (Auto) 61008 H Lymph # (Auto) 1700 [place] # (Auto) 1000 H Eos # (Auto) 400 Baso # (Auto) 100 Sodium 142 Potassium 4.2 Chloride 107 Carbon Dioxide 26 BUN 16 Creatinine 1.17 Estimated GFR > 60.0 BUN/Creatinine Ratio 13.7 Glucose 109 H Calcium 9.4 Total Bilirubin 0.5 AST 24 ALT 17 Alkaline Phosphatase 56 Total Protein 7.8 Albumin 4.3 Globulin 3.5 Albumin/Globulin Ratio 1.2 Lipase 377 H Ur Bilirubin Confirm Negative Urine RBC 0-1/hpf Urine WBC None seen Urine Bacteria None seen Ur Culture Indicated? Cult not indicated Assessment & Plan Assessment & Plan narrative: 1. Intractable vomiting of unknown etiology, acute, present on admission I suspect that this is cannabis hyperemesis syndrome coupled with exacerbated esophagitis. -rule out acute pancreatitis, alcohol pancreatitis, chronic pancreatitis, hypertriglyceridemia induced pancreatitis, microscopic colitis, ischemic colitis, infectious colitis -WBC 18.2 with a left shift neutrophils 15,000, lipase 377, amylase 115 -Abdominal ultrasound was negative for cholelithiasis or cholecystitis, or biliary duct dilation. Abdominal CT was negative for acute inflammatory findings. -ordered amylase, lactate, GGT 27, triglycerides -patient NPO until vomiting ceases then may progress to clear liquid as tolerated, if tolerating clear fluids in am may progress to a regular diet. -blood glucose checks q.6 hours while NPO, orthostatics Q shift, vital signs Q 4, strict I&O, weights daily. -patient had a BS check on the floor 350, ordered A1c 5.5% -LR 1L Bolus-Then LR 250cc/HR [id number] LR @100cc/hr -Ativan 1 mg q.4 hours for nausea vomiting, and Reglan, and Zofran -capsaicin topically Q 6 -recommend warm shower for nausea 2.Leukocytosis without left shift, acute, present on admission -as evidence by a WBC 18.2, neutrophils 15,000 -possibly related to exacerbation of esophagitis -monitor CBC q.day 3. Hiatal hernia with esophagitis, acute on chronic, present on admission -patient to receive 40 mg IV Protonix q.day, GI cocktail given now -continue patient's carafate 1gram BID-for maintenance dose 4. Bipolar I with major depressive disorder/borderline schizophrenia with auditory and visual hallucinations, acute on Chronic, present on admission -depression 01/22, anxiety 8-9, no hallucinations at this time, denies suicidal ideation -will continue patient Vraylar, Rexulti, venlafaxine, Toviaz, minipress (PTSD-r/t sleep disturbance)-patient will take his own medications as we are not likely to carry most of these meds. 5. Obesity as evidence by BMI of 38.7, acute on chronic, present on admission -consideration will be given to dietary counseling. 6.Chronic low back pain with neuropathy, chronic, present on admission -continue patient's gabapentin Code status: Full code Surrogate decision maker: Girlfriend Rosa Rea QUOC PCR: Negative VTE/DVT prophylaxis: Lovenox 40 mg and SCDs Estimated length of stay: less than 2 midnights Scores GCS [place] coma scale eye opening: Spontaneous [place] coma scale verbal response: Orientated Wanda coma scale motor response: Obey commands [place] coma scale total score: 15 SOFA PaO2/FIO2: >=400 mmHg Platelets: >= 150 Bilirubin: < 1.2 mg/dL Hypotension: MAP >= 70 mmHg [place] Coma Scale: 15 Renal: < 1.2 mg/dL SOFA Score: 0 Wells' Criteria for PE Clinical signs and symptoms of DVT: No PE is #1 Dx or equally likely: No Heart rate > 100: No Immobilization at least 3 days or surg in previous 4 weeks: No History of PE or DVT: Yes Hemoptysis: No Malignancy w/Treatment within 6 months or palliative: No Wells' PE Score total: 1.5 Quality MIPS - Admit I confirm the patient?s Advance Care Plan is present, Code status is documented, Surrogate decision maker is in patient?s record [If Yes, STOP here]: Yes
[2021-01-17] MEDS: DEXTROSE 5%-0.9% NS 1,000 ML 100 ML IV (02:30)
[2021-01-17 02:43] LABS: Amylase 115 U/L (30-110); Lactate (Lactic Acid) 1.1 mmol/L (0.7-2.1)
[2021-01-17 02:44] LABS: Magnesium 2.1 mg/dL (1.6-2.3)
[2021-01-17 02:52] LABS: Gamma Glutamyl Transpeptidase 27 U/L (15-73)
[2021-01-17 03:03] LABS: Ethanol (ETOH) < 10 mg/dL
[2021-01-17 03:03] LABS: COVID19 - ADMIT (NP swab/PCR) Negative (Negative)
[2021-01-17] MEDS: LACTATED RINGERS 1,000 ML 1000 ML IV (03:23)
[2021-01-17] MEDS: LORazepam 2 MG/ML INJ 1 MG IV ×4 (03:53→21:58)
[2021-01-17 04:25] LABS: Hemoglobin A1C% w Est Avg Glu 5.5 % (4.0-6.0)
[2021-01-17] MEDS: MAG HYDROX/ALUMINUM/SIMETH SUS 20 ML, LIDOCAINE VISCOUS 2% 15 ML PO (04:30)
[2021-01-17] MEDS: LACTATED RINGERS 1,000 ML 250 ML IV (04:40)
[2021-01-17 05:03] LABS: Add Manual Diff / Slide Review NO; Basophils Absolute Auto 0 /uL (0-100); Basophils Percent Auto 0.4 % (0-2); Eosinophils Absolute Auto 0 /uL (0-450); Eosinophils Percent Auto 0.1 % (2-4); Hematocrit 40.9 % (41-53); Hemoglobin 13.4 g/dL (13.5-17.5); Lymphocytes Absolute Auto 800 /uL (1100-4500); Lymphocytes Percent Auto 7.4 % (25-40); Mean Corpuscular HGB Conc 32.8 % (30-36); Mean Corpuscular Hemoglobin 28.1 PG (26-34); Mean Corpuscular Volume 85.5 fL (80-100); Monocytes Absolute Auto 100 /uL (0-900); Monocytes Percent Auto 0.7 % (3-14); Neutrophils Absolute Auto 9400 /uL (1500-7000); Neutrophils Percent Auto 91.4 % (50-75); Platelet Count 305 X10^3/uL (150-400); Red Blood Cell Count 4.78 X10^6/uL (4.5-5.9); Red Cell Distribution Width 14.7 % (11.6-14.8); White Blood Cell Count 10.2 X10^3/uL (4.5-11.0)
[2021-01-17 05:25] LABS: BUN Creatinine Ratio 13.2 (6-22); Blood Urea Nitrogen 14 mg/dL (9-20); Calcium 9.3 mg/dL (8.4-10.2); Carbon Dioxide 25 mmol/L (22-32); Chloride 107 mmol/L (98-107); Estimated Glomerular Filt Rate > 60.0 mL/min (>60); Glucose 148 mg/dL (70-100); HEMOLYSIS < 15 (0-50); Potassium 4.8 mmol/L (3.4-5.1); Sodium 141 mmol/L (137-145); Triglycerides 72 mg/dL (35-150)
[2021-01-17 05:42] LABS: Procalcitonin 0.04 ng/mL (<0.5)
--- NOTE | 2021-01-17 05:53 | PC.ADMIT ---
Addendum entered by Abi Pryor R.N. 01/17/21 05:55: Patient arrived at 0215 Original Note: [id number] Admission Note: Patient arrived to the floor from the ED via wheelchair. Patient was having some Nausea and stated that the pain is improving. Patient was oriented to room and call light and bed was left in lowest position. Patient did not have medications with him but stated his SO was going home to get them and would bring them back to go over home medications. No other concerns at this time. The patient,Elkin Figueredo,40 y/o, was given written information regarding hospital policies, unit procedures and contact persons. Patient's smoking status: Former smoker. Vital Signs - 8 hr 01/17/21 00:17 01/17/21 02:15 Temperature 97.6 F Pulse Rate 84 65 Respiratory Rate 18 16 Blood Pressure 145/79 H 113/67 Pulse Oximetry 98 96
[2021-01-17 05:55] LABS: Cortisol AM (Before 10AM) 5.89 ug/dL (4.46-22.7)
--- NOTE | 2021-01-17 05:56 | PC.NURSE ---
Patients SO brought medications to the patients room and patient was given the okay to take medications from JULIENNE Walls. Patient was offered to put medication in locked cabinet or send the medication down to pharmacy, however patient refused and has the medication in the room with him. Medication list was updated.
--- NOTE | 2021-01-17 07:44 | PM.PN.1 ---
Subjective Subjective Date Patient Seen: 01/17/21 Interval history: He will not fully wake up for me, keeping his eyes closed most of the time, but tells me that he feels a little bit better. He has a cooler full of medications, bottles and etc. next to his bed which he says he has been dosing on his own. Dr. Viviana Bonner is his primary care at the [facility] in [place]. The white blood count is 10.2 with a hemoglobin of 13.4 and a lipase of 377. The glucose is 148 and the last CMP is normal. The Amylase is 115. His cortisol level is 5.89 with a procalcitonin of 0.04. His CT abdomen shows no cause of his symptoms. Exam Vital Signs (past 8 hours): - 01/17/21 00:17 01/17/21 02:15 Temperature 97.6 F Pulse Rate 84 65 Respiratory Rate 18 16 Blood Pressure 145/79 H 113/67 Pulse Oximetry 98 96 Oxygen Delivery Method Room Air Oxygen Flow Rate 0 Narrative Exam Narrative: He is alert despite not wanting to open his eyes or move much in bed. He appears to be oriented. No apparent distress. Heart is regular rate and rhythm without murmur Lungs are clear to auscultation bilaterally Abdomen is obese, bowel sounds positive, nontender, no organomegaly Extremities have no ankle edema Objective Labs Result Diagrams: 01/17/21 04:50 01/17/21 04:50 Labs: Laboratory Results - last 24 hr 01/16/21 01/16/21 01/16/21 20:25 20:25 20:25 WBC 18.2 H RBC 5.22 Hgb 14.6 Hct 44.5 MCV 85.3 MCH 27.9 MCHC 32.7 RDW 14.5 Plt Count 319 Neut % (Auto) 82.7 H Lymph % (Auto) 9.2 L [place] % (Auto) 5.6 Eos % (Auto) 2.1 Baso % (Auto) 0.4 Neut # (Auto) 66655 H Lymph # (Auto) 1700 [place] # (Auto) 1000 H Eos # (Auto) 400 Baso # (Auto) 100 Sodium 142 Potassium 4.2 Chloride 107 Carbon Dioxide 26 BUN 16 Creatinine 1.17 Estimated GFR > 60.0 BUN/Creatinine Ratio 13.7 Glucose 109 H Hemoglobin A1c Lactate Calcium 9.4 Magnesium 2.1 Total Bilirubin 0.5 GGT AST 24 ALT 17 Alkaline Phosphatase 56 Total Protein 7.8 Albumin 4.3 Globulin 3.5 Albumin/Globulin Ratio 1.2 Triglycerides Amylase Lipase 377 H Procalcitonin Cortisol AM Sample Ur Bilirubin Confirm Urine RBC Urine WBC Urine Bacteria Ur Culture Indicated? Ethyl Alcohol SARS-CoV-2 (PCR) 01/16/21 01/16/21 01/16/21 20:25 20:25 20:25 WBC RBC Hgb Hct MCV MCH MCHC RDW Plt Count Neut % (Auto) Lymph % (Auto) [place] % (Auto) Eos % (Auto) Baso % (Auto) Neut # (Auto) Lymph # (Auto) [place] # (Auto) Eos # (Auto) Baso # (Auto) Sodium Potassium Chloride Carbon Dioxide BUN Creatinine Estimated GFR BUN/Creatinine Ratio Glucose Hemoglobin A1c Lactate 1.1 Calcium Magnesium Total Bilirubin GGT 27 AST ALT Alkaline Phosphatase Total Protein Albumin Globulin Albumin/Globulin Ratio Triglycerides Cancelled Amylase 115 H Lipase Procalcitonin Cortisol AM Sample Ur Bilirubin Confirm Urine RBC Urine WBC Urine Bacteria Ur Culture Indicated? Ethyl Alcohol SARS-CoV-2 (PCR) 01/16/21 01/16/21 01/16/21 20:25 20:25 21:33 WBC RBC Hgb Hct MCV MCH MCHC RDW Plt Count Neut % (Auto) Lymph % (Auto) [place] % (Auto) Eos % (Auto) Baso % (Auto) Neut # (Auto) Lymph # (Auto) [place] # (Auto) Eos # (Auto) Baso # (Auto) Sodium Potassium Chloride Carbon Dioxide BUN Creatinine Estimated GFR BUN/Creatinine Ratio Glucose Hemoglobin A1c 5.5 Lactate Calcium Magnesium Total Bilirubin GGT AST ALT Alkaline Phosphatase Total Protein Albumin Globulin Albumin/Globulin Ratio Triglycerides Amylase Lipase Procalcitonin Cortisol AM Sample Ur Bilirubin Confirm Negative Urine RBC 0-1/hpf Urine WBC None seen Urine Bacteria None seen Ur Culture Indicated? Cult not indicated Ethyl Alcohol < 10 SARS-CoV-2 (PCR) 01/17/21 01/17/21 01/17/21 02:05 04:50 04:50 WBC 10.2 RBC 4.78 Hgb 13.4 L Hct 40.9 L MCV 85.5 MCH 28.1 MCHC 32.8 RDW 14.7 Plt Count 305 Neut % (Auto) 91.4 H Lymph % (Auto) 7.4 L [place] % (Auto) 0.7 L Eos % (Auto) 0.1 L Baso % (Auto) 0.4 Neut # (Auto) 9400 H Lymph # (Auto) 800 L [place] # (Auto) 100 Eos # (Auto) 0 Baso # (Auto) 0 Sodium 141 Potassium 4.8 Chloride 107 Carbon Dioxide 25 BUN 14 Creatinine 1.06 Estimated GFR > 60.0 BUN/Creatinine Ratio 13.2 Glucose 148 H Hemoglobin A1c Lactate Calcium 9.3 Magnesium Total Bilirubin GGT AST ALT Alkaline Phosphatase Total Protein Albumin Globulin Albumin/Globulin Ratio Triglycerides 72 Amylase Lipase Procalcitonin 0.04 Cortisol AM Sample Ur Bilirubin Confirm Urine RBC Urine WBC Urine Bacteria Ur Culture Indicated? Ethyl Alcohol SARS-CoV-2 (PCR) Negative 01/17/21 04:50 WBC RBC Hgb Hct MCV MCH MCHC RDW Plt Count Neut % (Auto) Lymph % (Auto) [place] % (Auto) Eos % (Auto) Baso % (Auto) Neut # (Auto) Lymph # (Auto) [place] # (Auto) Eos # (Auto) Baso # (Auto) Sodium Potassium Chloride Carbon Dioxide BUN Creatinine Estimated GFR BUN/Creatinine Ratio Glucose Hemoglobin A1c Lactate Calcium Magnesium Total Bilirubin GGT AST ALT Alkaline Phosphatase Total Protein Albumin Globulin Albumin/Globulin Ratio Triglycerides Amylase Lipase Procalcitonin Cortisol AM Sample 5.89 Ur Bilirubin Confirm Urine RBC Urine WBC Urine Bacteria Ur Culture Indicated? Ethyl Alcohol SARS-CoV-2 (PCR) [facility] Medical History (Updated 01/17/21 @ 04:07 by DEL Martinez) Bipolar 1 disorder, depressed, severe Borderline schizophrenia BPH (benign prostatic hyperplasia) Chronic low back pain Hiatal hernia with gastroesophageal reflux disease and esophagitis History of pulmonary embolism Neuropathy Obesity (BMI 30-39.9) Surgical History (Updated 01/17/21 @ 04:07 by DEL Martinez) History of surgical removal of skin lesion Family History (Updated 01/17/21 @ 04:08 by DEL Martinez) Mother Polycystic kidney disease Kidney transplanted Father Hypertension Social History household members: significant other Smoking Status: Former smoker Assessment & Plan Assessment & Plan narrative: 1. Intractable vomiting of Cannabis Hyperemesis Syndrome, acute, present on admission -This is cannabis hyperemesis syndrome coupled with esophagitis. -Lipase and Amylase are elevated but the Abdominal CT does not confirm Pancreatitis, follow -Abdominal ultrasound was negative for cholelithiasis, cholecystitis, or biliary duct dilation. -patient NPO until vomiting ceases then may progress to clear liquid as tolerated, if tolerating clear fluids may progress to a regular diet. -blood glucose checks q.6 h -patient had a BS check on the floor 350, ordered A1c 5.5% -LR @100cc/hr -Ativan 1 mg q.4 hours for nausea vomiting, and Reglan, and Zofran -capsaicin topically Q 6 -recommend warm shower for nausea 2.Leukocytosis without left shift, acute, present on admission -WBC 18.2, followed by 10.2 -possibly related to exacerbation of esophagitis -monitor CBC q.day 3. Hiatal hernia with esophagitis, acute on chronic, present on admission -40 mg IV Protonix q.day -continue Carafate 1gram BID-for maintenance dose 4. Bipolar I with major depressive disorder/borderline schizophrenia with auditory and visual hallucinations, acute on Chronic, present on admission -depression 01/22, anxiety 8-9, no hallucinations at this time, denies suicidal ideation -will continue patient Vraylar, Rexulti, venlafaxine, Toviaz, minipress (PTSD-r/t sleep disturbance)-patient will take his own medications as we are not likely to carry most of these meds. 5. Obesity as evidence by BMI of 38.7, acute on chronic, present on admission -consideration will be given to dietary counseling. 6.Chronic low back pain with neuropathy, chronic, present on admission -continue patient's gabapentin Code status: Full code Surrogate decision maker: Girlfriend Rosa Rea VTE/DVT prophylaxis: Lovenox 40 mg and SCDs
[2021-01-17 08:24] LABS: Amylase 73 U/L (30-110); Lipase 97 U/L (23-300)
[2021-01-17] MEDS: GABAPENTIN 300 MG CAPSULE PO ×2 (10:51→21:27)
[2021-01-17] MEDS: VENLAFAXINE ER 75 MG CAP 225 MG PO (10:52)
[2021-01-17] MEDS: FAMOTIDINE 20 MG/2 ML VIAL IV ×2 (10:52→21:26)
[2021-01-17] MEDS: PANTOPRAZOLE 40 MG VIAL IV (10:52)
[2021-01-17] MEDS: OXYBUTYNIN 5 MG ER TAB 10 MG PO (11:00)
[2021-01-17] MEDS: ENOXAPARIN 40 MG/0.4 ML SYRINGE SUBCUT (11:00)
[2021-01-17] MEDS: BREXPIPRAZOLE 4 MG 4 EACH PO (11:09)
--- NOTE | 2021-01-17 11:46 | PC.NURSE ---
HOME MEDICATIONS IN PHARMACY. Nathalia and I addressed home medications with pt this AM. pt agreed (reluctantly) to allow pharmacy to lock up personal medications (in a blue cooler). pt hypervigilant of medications and will be taking 2 of his own medications, one in AM and one in PM.
--- NOTE | 2021-01-17 11:56 | PC.NURSE ---
Addendum entered by Melissa Morales R.N. 01/17/21 15:01: pt had visit for a little bit (girlfriend) but has been sleeping most of shift. Refused shower. pt requested to push 0900 Sucralfate 2 hours after his morning medications (which were administered around 1020) but has been sleeping ever since. I placed the medication in his nurse fine dining server drawer. Original Note: AM shift note. pt AO and reluctant but receptive to care. pt very hypervigilant with medications (sent home medications down to pharmacy this AM via Nathalia in his blue cooler). pt up IND/SBA with IV pole help. BM this am and voiding in urinal. Mild ABD pain and cramping with clear breakfast, only able to tolerate jello cup. Administered PRN 1mg Ativan with AM medications around 1000. CBG obtained per pt request at 155. LR infusing at 100/hr.
--- NOTE | 2021-01-17 15:16 | CM.DANOTE ---
DCP/Assessment: Reviewed chart. Patient is a 40yr old male admitted to [facility] with intractable nausea and vomiting. PCP is Dr. Bonner at [facility] in [facility]. Primary payor is 1)[employer]. Met with patient this AM explained CM/SW role. Patient alert and oriented during visit but appeared groggy. Patient reports that he resides with his girlfriend/Rosa. Patient indicates that he is completely I in all ADL's. Patient does have Bipolar 1 with severe depression which he is being treated for. Patient also with borderline schizophrenia. Currently patient denies any issues related to his Mental Health. Patient denies alcohol and drug use. However, he does report long-term marijuana usage. P: Anticipate home when medically stable. Per provider d/c anticiapted within the next 24-48hrs. SYLVIA Gann Discharge Planning/Care Management CM Discharge Assessment Start: 01/17/21 15:14 Freq: Status: Active Protocol: Document 01/17/21 15:14 KJS (Rec: 01/17/21 15:16 KJS [id number]) Discharge Planning Assessment Assigned Hardware Design Engineer SYLVIA Gann Contact Information Rosa Rea (significant other) ph# [phone] Advance Directives? No History Provided By Patient,Medical Record Prior Living Arrangements House Household Members significant other Type of transporation used prior to Drives own vehicle admit Independent with ADL's Yes Is patient alert and oriented? Yes Barriers to Discharge No Discharge Plan Home Transportation Arrangement Friend to provide transport. Referrals Initiated None needed Additional Comment Continue to follow if needs arise. Whiteboard Updated in Patient Room with Yes name and ext. # of Hardware Design Engineer Review Status In Process Next Review Type Continued Stay Review
[2021-01-17] MEDS: PRAZOSIN HCL 5 MG CAPSULE PO (21:27)
[2021-01-18] VITALS (7 sets, daily range): BP systolic 114–127; BP diastolic 62–92; PULSE 60–92; RESP 14–18; TEMP 36.2–36.8; O2SAT 95–96
[2021-01-18] MEDS: SUCRALFATE 1 GM TABLET PO ×2 (00:34→11:15)
[2021-01-18 05:26] LABS: Add Manual Diff / Slide Review NO; Basophils Absolute Auto 0 /uL (0-100); Basophils Percent Auto 0.3 % (0-2); Eosinophils Absolute Auto 200 /uL (0-450); Eosinophils Percent Auto 1.9 % (2-4); Hematocrit 39.9 % (41-53); Lymphocytes Absolute Auto 3100 /uL (1100-4500); Lymphocytes Percent Auto 33.6 % (25-40); Mean Corpuscular HGB Conc 32.6 % (30-36); Mean Corpuscular Hemoglobin 27.9 PG (26-34); Mean Corpuscular Volume 85.6 fL (80-100); Monocytes Absolute Auto 700 /uL (0-900); Monocytes Percent Auto 7.3 % (3-14); Neutrophils Absolute Auto 5200 /uL (1500-7000); Neutrophils Percent Auto 56.9 % (50-75); Platelet Count 274 X10^3/uL (150-400); Red Blood Cell Count 4.66 X10^6/uL (4.5-5.9); Red Cell Distribution Width 14.5 % (11.6-14.8); White Blood Cell Count 9.1 X10^3/uL (4.5-11.0)
--- NOTE | 2021-01-18 05:39 | PC.NURSE ---
Patient refused hospital SCDs but is wearing personal SCDs that were brought from home.
[2021-01-18 05:59] LABS: BUN Creatinine Ratio 15.8 (6-22); Blood Urea Nitrogen 18 mg/dL (9-20); Calcium 8.9 mg/dL (8.4-10.2); Carbon Dioxide 28 mmol/L (22-32); Chloride 106 mmol/L (98-107); Estimated Glomerular Filt Rate > 60.0 mL/min (>60); Glucose 97 mg/dL (70-100); HEMOLYSIS < 15 (0-50); Sodium 140 mmol/L (137-145)
[2021-01-18] MEDS: GABAPENTIN 300 MG CAPSULE PO (09:05)
[2021-01-18] MEDS: VENLAFAXINE ER 75 MG CAP 225 MG PO (09:05)
[2021-01-18] MEDS: BREXPIPRAZOLE 4 MG 4 EACH PO (09:05)
[2021-01-18] MEDS: OXYBUTYNIN 5 MG ER TAB 10 MG PO (09:06)
[2021-01-18] MEDS: ENOXAPARIN 40 MG/0.4 ML SYRINGE SUBCUT (09:06)
[2021-01-18] MEDS: PANTOPRAZOLE 40 MG VIAL IV (09:06)
[2021-01-18] MEDS: FAMOTIDINE 20 MG/2 ML VIAL IV (09:06)
--- NOTE | 2021-01-18 10:30 | PC.NURSE ---
Assess- Patient is alert and oriented x3, he denies pain. States that he does have slight nausea but is ok after he ate his breakfast. Patient is up independently and will be discharged home today.
--- NOTE | 2021-01-18 21:42 | P.DS_ITS ---
History of Present Illness History of Present Illness Chief complaint: vomiting non stop Narrative: Per No Walls: Patient is a 40 year old male Elkin Figueredo who presented to the ED this evening for intractable nausea and vomiting. Patient states that he has been feeling poorly for approximately the last 9 days with nausea, vomiting and decreased appetite, starting yesterday he began to have in addition to nausea and vomiting, diarrhea and worsening abdominal pain unable to keep fluids down. He reports 6 bouts of diarrhea within the past 24 hours. ED provided the patient with Zofran, Benadryl, Ativan and Reglan and patient was unable to tolerate fluid challenge. Patient denies chest pain, shortness of breath, fever, cough, C[place]RDENAS. Patient has history of BPH, PE due to medication, chronic back pain with neuropathy, bipolar 1 with borderline schizophrenia (auditory & visual hallucinations), and a esophageal hiatal hernia with esophagitis. 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 Upon admit the patient has just ingested container of apple juice and is able to keep it down, he is having continued nausea abdominal pain 6/10 diffuse across the abdomen, with the greatest tenderness over the epigastric area, body aches and chills, c/o burning up the esophagus, acid in his mouth, frequent burping. Patient reports that he is been advised that he would benefit from a lap band but that his weight has precluded him from surgery. The patient also is having significant anxiety an 8 to 9/10, depression 7/10, he denies suicidal ideation. He has not taken any of his psych meds for 24 hour due to vomiting, but his girlfriend is bringing in his medications momentarily. The patient will be taking his medications from from home as our pharmacy does not stock many of his medications. During admit exam patient was able to keep the apple juice down and I observed him taking his evening medications. Patient quit smoking in 2014 he had been a smoker for approximately 20 years, he no longer drinks alcohol, but he does use marijuana frequently and has since approximately the age of 10. I did discuss with patient the cannabis hyperemesis syndrome and that it may be a contributing factor at this time. The patient's vital signs upon admit temp 98.1?, BP mild elevation 145/79, HR 84, RR 18, 98% on room air. Patient did have an elevated white count at 18.2 with a left shift neutrophils 15,000. The rest of CBC and CMP within normal limits. Patient did have a mildly elevated lipase at 377, have ordered amylase, GGT, procalcitonin for further diagnostic evaluation. Abdominal ultrasound was negative for cholelithiasis or cholecystitis, or biliary duct dilation. Abdomi nal CT was negative for acute inflammatory findings. Discharge Providers Provider Date of admission: 01/17/21 01:45 Discharge Date: 01/18/21 Discharge provider: Domingo Sanford MD Summary Hospital Course Discharge Diagnosis: 1. Vomiting, possibly from Cannabis hyperemesis syndrome 2. Leukocytosis 3. Hiatal hernia 4. Bipolar 1 with major depressive disorder, borderline schizoprenia 5. Obesity, BMI 38.7 6. Chronic low back pain Hospital Course: Mr. Figueredo was admitted with nausea and abdominal pain. CT of his abdomen and abdominal ultrasound showed no acute process. He did initially have elevated white blood cell count, but that resolved without antibiotics. He initially admitted to frequent marijuana usage, he did note relief with hot showers of his symptoms. It was thought he possibly had vomiting secondary to marijuana and he was counselled to quit. He has a history of esophagitis and reflux from a hiatal hernia. He was on protonix. He should continue this and follow up with a PCP to determine if he needs further treatment. On day of discharge he was tolerating a diet and feeling much improved. Status at Discharge Cognitive/behavioral status at discharge: oriented Functional status at discharge: independent ambulation Overall status at discharge: patient is progressing back to baseline Exam Vital Signs (past 8 hours): Oxygen Delivery Method Room Air Oxygen Flow Rate 0 Narrative Exam Narrative: GEN: No apparent distress. CV: regular rate and rhythm without murmur PULM: clear to auscultation bilaterally ABD: obese, bowel sounds positive, nontender, no organomegaly EXT: have no ankle edema Objective Labs Result Diagrams: 01/18/21 05:00 01/18/21 05:00 Labs: Laboratory Results - last 24 hr 01/18/21 01/18/21 05:00 05:00 WBC 9.1 RBC 4.66 Hgb 13.0 L Hct 39.9 L MCV 85.6 MCH 27.9 MCHC 32.6 RDW 14.5 Plt Count 274 Neut % (Auto) 56.9 D Lymph % (Auto) 33.6 D [place] % (Auto) 7.3 Eos % (Auto) 1.9 L Baso % (Auto) 0.3 Neut # (Auto) 5200 Lymph # (Auto) 3100 [place] # (Auto) 700 Eos # (Auto) 200 Baso # (Auto) 0 Sodium 140 Potassium 4.0 Chloride 106 Carbon Dioxide 28 BUN 18 Creatinine 1.14 Estimated GFR > 60.0 BUN/Creatinine Ratio 15.8 Glucose 97 Calcium 8.9 PFSH Medical History Bipolar 1 disorder, depressed, severe Borderline schizophrenia BPH (benign prostatic hyperplasia) Chronic low back pain Hiatal hernia with gastroesophageal reflux disease and esophagitis History of pulmonary embolism Neuropathy Obesity (BMI 30-39.9) Surgical History History of surgical removal of skin lesion Family History Mother Polycystic kidney disease Kidney transplanted Father Hypertension Social History household members: significant other Smoking Status: Former smoker Discharge Plan Discharge Plan Patient Disposition: Home Provider Discharge Comment: Mr. Figueredo came in with vomiting and abdominal pain. He had a CT scan which showed no abnormalities. It was thought his symptoms could be related to gastritis vs related to cannabis. He is recommended to avoid cannabis. He is given a script for nausea. He may also have IBS type symptoms. He should follow up closely with his PCP and may need a gastroenterology follow up as well if he continues to have symptoms. Discharge orders & Medications Prescriptions: New ondansetron HCl [Zofran] 4 mg tablet 4 mg PO Q8H PRN (Reason: nausea and vomiting) Qty: 30 RF: 0 Continued prazosin 5 mg Capsule 5 mg PO BEDTIME RF: 0 pantoprazole 40 mg Tablet,Delayed Release (Dr/Ec) 40 mg PO BEDTIME RF: 0 gabapentin 300 mg capsule 300 mg PO BID RF: 0 venlafaxine 75 mg capsule,extended release 24hr 75 mg PO QAM RF: 0 venlafaxine 150 mg capsule,extended release 24hr 150 mg PO QAM RF: 0 loratadine [Claritin] 10 mg Tablet 10 mg PO DAILY RF: 0 Toviaz 8 mg tablet extended release 24 hr 8 mg PO QAM RF: 0 Rexulti 4 mg tablet 4 mg PO QAM RF: 0 Vraylar 3 mg capsule 3 mg PO BEDTIME RF: 0 Discontinued sucralfate [Carafate] 1 gram Tablet 1 g PO QID RF: 0 ondansetron 4 mg tablet,disintegrating 4 mg PO Q8-12H PRN (Reason: nausea and vomiting) Qty: 14 RF: 0 Diet/Activity/Treatments Diet: Regular and Low-fat Visit Report/Discharge Packet Instructions: DI for Vomiting -- Adult, Nausea and Vomiting-Adult Discharge Data Attending Provider: No Walls Quality MIPS - DC The patient has current or prior documentation of left ventricular ejection fraction (LVEF) less than 40%, or moderate or severely depressed left ventricular systolic function.: No
== END 2021-01-18 12:35 | disposition home or self-care (01) ==
LOC: ED 01-17 01:45 → AC 01-17 01:46
PROVIDERS: Family Medicine; Admitting Provider Nurse Practitioner Family; Emergency Provider Emergency Medicine; Visit Provider Nurse Practitioner Family
DX: R10.9 Unspecified abdominal pain (principal); R11.2 Nausea with vomiting, unspecified; F31.89 Other bipolar disorder; E66.9 Obesity, unspecified; Z68.38 Body mass index [BMI] 38.0-38.9, adult; K44.9 Diaphragmatic hernia without obstruction or gangrene; G89.29 Other chronic pain; M54.5 Low back pain; D72.829 Elevated white blood cell count, unspecified; F12.90 Cannabis use, unspecified, uncomplicated; Z20.822 Contact with and (suspected) exposure to COVID-19
CPT/HCPCS: 36415; 74177; 76705; 80048; 80053; 80320; 81003; 81015; 82150; 82533; 82962; 82977; 83036; 83605; 83690; 83735; 84145; 84478; 85025; 87635; 93005; 94760; 96361; 96372; 96374; 96375; 96376; 99284; C9803; G0378; C9113; J1200; J1650; J2060; J2405; J2930; Q9967